=== PATIENT | male | born 1960 | race Caucasian/White ===

== ENCOUNTER 2018-02-01 13:36 | Emergency (ER) | payer OTHER ==
[~2018-02-01] VITALS: Ht 170.2 cm; Wt 113.4 kg
[2018-02-01 14:20] LABS: BASOPHILS ABSOLUTE AUTO 0.03 K/mm3 (0.00-0.23); BASOPHILS PERCENT AUTO 0 % (0-2); EOSINOPHILS ABSOLUTE AUTO 0.21 K/mm3 (0.00-0.68); EOSINOPHILS PERCENT AUTO 2 % (0-6); Hematocrit 45.8 % (37.0-53.0); Hemoglobin 15.8 g/dL (13.5-17.5); IMMATURE GRAN ABSOLUTE AUTO 0.05 K/mm3 (0.00-0.10); IMMATURE GRAN PERCENT AUTO 0 % (0-1); LYMPHOCYTES PERCENT AUTO 16 % (21-46); MONOCYTES ABSOLUTE AUTO 1.04 K/mm3 (0.16-1.47); MONOCYTES PERCENT AUTO 9 % (4-13); Mean Corpuscular HGB Conc 34.5 g/dL (31.5-36.5); Mean Corpuscular Volume 87 fL (80-100); Mean Platelet Volume 10.6 fL (9.1-12.4); NEUTROPHILS ABSOLUTE AUTO 8.89 K/mm3 (1.96-9.15); NEUTROPHILS PERCENT AUTO 73 % (41-73); Platelet Count 324 K/mm3 (150-400); RDW Coefficient Variation 13.6 % (11.7-14.2); RDW Standard Deviation 42.8 fL (35.1-46.3); Red Blood Cell Count 5.27 M/mm3 (4.30-5.90); White Blood Cell Count 12.12 K/mm3 (4.00-11.30)
[2018-02-01 14:46] LABS: Alanine Aminotransfer (ALT/SGP 36 U/L (12-78); Albumin, Blood 3.3 g/dL (3.4-5.0); Albumin/Globulin Ratio 0.8 (0.8-1.8); Alk Phos 88 U/L (50-136); Anion Gap 8 mmol/L (6-16); Aspartate Aminotrans (AST/SGOT 19 U/L (12-37); Blood Urea Nitrogen 12 mg/dL (8-24); Bun/Creatinine Ratio 14.7 (12.0-20.0); CO2, Blood 26 mmol/L (21-32); Calcium, Blood 8.8 mg/dL (8.5-10.1); Chloride, Blood 102 mmol/L (98-108); Creatinine, Blood 0.82 mg/dL (0.60-1.20); Globulin, Blood 4.4 g/dL (2.2-4.0); Glomerular Filtration Rate >60 (60-); Glucose, Blood 114 mg/dL (70-99); Sodium, Blood 136 mmol/L (136-145); Total Protein, Blood 7.7 g/dL (6.4-8.2); Troponin I <0.015 ng/mL (0.000-0.040)
[2018-02-01 15:11] LABS: Influenza A Negative (NEGATIVE); Influenza B Negative (NEGATIVE)
[2018-02-01] MEDS ORDERED: Mucinex600 MG PO (15:44)
[2018-02-01] MEDS ORDERED: Cheratussin AC118 ML PO (15:44)
[2018-02-01] MEDS ORDERED: Prednisone20 MG PO (15:44)
[2018-02-01] MEDS ORDERED: ALBU90OI INH (15:44)
== END 2018-02-01 16:21 | disposition home or self-care (01) ==
LOC: ER 13:36
PROVIDERS: Emergency Medicine; Physician Assistant
DX: J40 Bronchitis, not specified as acute or chronic (principal); Z79.899 Other long term (current) drug therapy; Z79.52 Long term (current) use of systemic steroids
CPT/HCPCS: 36415; 71046; 80053; 83880; 84484; 85025; 87804; 93005; 93010; 94640; 99284; J2930

== ENCOUNTER 2018-02-08 18:49 | Emergency (ER) | payer OTHER ==
[~2018-02-08] VITALS: Ht 170.2 cm; Wt 113.4 kg
[~2018-02-08 18:49] MED LIST: ALBU90OI INH; Cheratussin AC118 ML PO; Mucinex600 MG PO; Prednisone20 MG PO
[2018-02-08 20:59] LABS: BASOPHILS ABSOLUTE AUTO 0.04 K/mm3 (0.00-0.23); BASOPHILS PERCENT AUTO 0 % (0-2); EOSINOPHILS ABSOLUTE AUTO 0.11 K/mm3 (0.00-0.68); EOSINOPHILS PERCENT AUTO 1 % (0-6); Hematocrit 39.8 % (37.0-53.0); Hemoglobin 13.5 g/dL (13.5-17.5); IMMATURE GRAN ABSOLUTE AUTO 0.04 K/mm3 (0.00-0.10); IMMATURE GRAN PERCENT AUTO 0 % (0-1); LYMPHOCYTES ABSOLUTE AUTO 2.33 K/mm3 (0.84-5.20); LYMPHOCYTES PERCENT AUTO 25 % (21-46); MONOCYTES ABSOLUTE AUTO 0.71 K/mm3 (0.16-1.47); MONOCYTES PERCENT AUTO 8 % (4-13); Mean Corpuscular HGB 30.1 pg (26.0-34.0); Mean Corpuscular HGB Conc 33.9 g/dL (31.5-36.5); Mean Corpuscular Volume 89 fL (80-100); Mean Platelet Volume 10.5 fL (9.1-12.4); NEUTROPHILS ABSOLUTE AUTO 6.13 K/mm3 (1.96-9.15); NEUTROPHILS PERCENT AUTO 66 % (41-73); Platelet Count 260 K/mm3 (150-400); RDW Coefficient Variation 13.5 % (11.7-14.2); RDW Standard Deviation 43.7 fL (35.1-46.3); Red Blood Cell Count 4.48 M/mm3 (4.30-5.90); White Blood Cell Count 9.36 K/mm3 (4.00-11.30)
[2018-02-08 21:02] LABS: Bicarbonate Venous 25.9 mmol/L (24.0-30.0); PCO2 Venous 42.9 mmHg (38-42); PO2 Venous 190 mmHg (38-42)
[2018-02-08 21:46] LABS: U Amphetamine Screen DETECTED; U Barbituate Screen Not Detected; U Benzodiazapine Screen Not Detected; U Buprenorphine Screen Not Detected; U Cannabinoids Screen Not Detected; U Cocaine Screen Not Detected; U Methadone Screen Not Detected; U Methamphetamine Screen Not Detected; U Opiates Screen Not Detected; U Oxycodone Screen Not Detected; U Phencyclidine Screen Not Detected; U Propoxyphene Screen Not Detected
[2018-02-08] MEDS ORDERED: ALBU90OI INH (21:59)
[2018-02-08 22:04] LABS: Alanine Aminotransfer (ALT/SGP 48 U/L (12-78); Albumin, Blood 3.2 g/dL (3.4-5.0); Albumin/Globulin Ratio 0.9 (0.8-1.8); Alk Phos 75 U/L (50-136); Anion Gap 7 mmol/L (6-16); Aspartate Aminotrans (AST/SGOT 26 U/L (12-37); Bilirubin, Total 0.5 mg/dL (0.1-1.0); Blood Urea Nitrogen 24 mg/dL (8-24); Bun/Creatinine Ratio 28.8 (12.0-20.0); CO2, Blood 28 mmol/L (21-32); Calcium, Blood 8.4 mg/dL (8.5-10.1); Chloride, Blood 106 mmol/L (98-108); Creatinine, Blood 0.83 mg/dL (0.60-1.20); Globulin, Blood 3.7 g/dL (2.2-4.0); Glomerular Filtration Rate >60 (60-); Glucose, Blood 91 mg/dL (70-99); Potassium, Blood 3.5 mmol/L (3.5-5.5); Sodium, Blood 141 mmol/L (136-145); Total Protein, Blood 6.9 g/dL (6.4-8.2); Troponin I <0.015 ng/mL (0.000-0.040)
[2018-02-08 22:08] LABS: Thyroid Stimulating Hormone 0.699 uIU/mL (0.360-4.800)
== END 2018-02-08 22:13 | disposition home or self-care (01) ==
LOC: ER 18:49
PROVIDERS: Emergency Medicine
DX: J20.9 Acute bronchitis, unspecified (principal); J45.909 Unspecified asthma, uncomplicated; F43.9 Reaction to severe stress, unspecified; Z79.899 Other long term (current) drug therapy
CPT/HCPCS: 36415; 71046; 80053; 82803; 83880; 84443; 84484; 85025; 93005; 93010; 94640; 99284

== ENCOUNTER 2018-03-09 14:15 | Emergency (ER) | payer OTHER ==
[~2018-03-09] VITALS: Ht 170.2 cm; Wt 113.4 kg
[2018-03-09] MEDS ORDERED: CYCL10 PO (15:57)
[2018-03-09] MEDS ORDERED: IBUP800 PO (15:57)
== END 2018-03-09 16:20 | disposition home or self-care (01) ==
LOC: ER 14:15
DX: S20.211A Contusion of right front wall of thorax, initial encounter (principal); Z79.899 Other long term (current) drug therapy; Z79.51 Long term (current) use of inhaled steroids; W22.8XXA Striking against or struck by other objects, initial encounter; Y93.72 Activity, wrestling
CPT/HCPCS: 71101; 99283

== ENCOUNTER 2018-04-05 09:29 | Emergency (ER) | payer OTHER ==
[~2018-04-05] VITALS: Ht 170.2 cm; Wt 113.4 kg
[~2018-04-05 09:29] MED LIST changes: +CYCL10 PO; +IBUP800 PO
[2018-04-05 11:13] LABS: BASOPHILS ABSOLUTE AUTO 0.03 K/mm3 (0.00-0.23); BASOPHILS PERCENT AUTO 0 % (0-2); EOSINOPHILS ABSOLUTE AUTO 0.24 K/mm3 (0.00-0.68); EOSINOPHILS PERCENT AUTO 4 % (0-6); Hematocrit 42.3 % (37.0-53.0); Hemoglobin 14.3 g/dL (13.5-17.5); IMMATURE GRAN ABSOLUTE AUTO 0.02 K/mm3 (0.00-0.10); IMMATURE GRAN PERCENT AUTO 0 % (0-1); LYMPHOCYTES ABSOLUTE AUTO 2.02 K/mm3 (0.84-5.20); LYMPHOCYTES PERCENT AUTO 30 % (21-46); MONOCYTES ABSOLUTE AUTO 0.65 K/mm3 (0.16-1.47); MONOCYTES PERCENT AUTO 10 % (4-13); Mean Corpuscular HGB Conc 33.8 g/dL (31.5-36.5); Mean Corpuscular Volume 89 fL (80-100); Mean Platelet Volume 10.3 fL (9.1-12.4); NEUTROPHILS ABSOLUTE AUTO 3.84 K/mm3 (1.96-9.15); NEUTROPHILS PERCENT AUTO 57 % (41-73); Platelet Count 286 K/mm3 (150-400); RDW Coefficient Variation 13.3 % (11.7-14.2); RDW Standard Deviation 43.6 fL (35.1-46.3); Red Blood Cell Count 4.77 M/mm3 (4.30-5.90)
[2018-04-05 11:22] LABS: Alanine Aminotransfer (ALT/SGP 32 U/L (12-78); Albumin/Globulin Ratio 0.7 (0.8-1.8); Alk Phos 78 U/L (50-136); Anion Gap 7 mmol/L (6-16); Aspartate Aminotrans (AST/SGOT 21 U/L (12-37); Bilirubin, Total 0.6 mg/dL (0.1-1.0); Blood Urea Nitrogen 24 mg/dL (8-24); Bun/Creatinine Ratio 25.6 (12.0-20.0); CO2, Blood 30 mmol/L (21-32); Chloride, Blood 102 mmol/L (98-108); Creatinine, Blood 0.94 mg/dL (0.60-1.20); Globulin, Blood 4.3 g/dL (2.2-4.0); Glomerular Filtration Rate >60 (60-); Glucose, Blood 120 mg/dL (70-99); Potassium, Blood 4.1 mmol/L (3.5-5.5); Sodium, Blood 139 mmol/L (136-145); Total Protein, Blood 7.3 g/dL (6.4-8.2)
[2018-04-05] MEDS ORDERED: Keflex500 MG PO (11:51)
[2018-04-05] MEDS ORDERED: Bactrim Ds Tab1 EACH PO (11:51)
== END 2018-04-05 13:42 | disposition home or self-care (01) ==
LOC: ER 09:29
PROVIDERS: Physician Assistant
DX: L02.211 Cutaneous abscess of abdominal wall (principal); L03.311 Cellulitis of abdominal wall; Z79.899 Other long term (current) drug therapy; Z79.51 Long term (current) use of inhaled steroids
CPT/HCPCS: 36415; 80053; 83605; 85025; 87070; 87075; 87077; 87186; 87205; 96374; 96375; 99283; J0696; J1885; J7060

== ENCOUNTER 2020-10-06 11:21 | Emergency (ER) | payer OTHER ==
[~2020-10-06] VITALS: Ht 170.2 cm; Wt 140.6 kg
[~2020-10-06 11:21] MED LIST changes: +Bactrim Ds Tab1 EACH PO; +Keflex500 MG PO; +Viagra100 MG; +ZESTRIL40 M1 PO
== END 2020-10-06 15:08 | disposition left against medical advice (07) ==
LOC: ER 11:21
DX: Z53.21 Procedure and treatment not carried out due to patient leaving prior to being seen by health care provider (principal)
CPT/HCPCS: 71046

== ENCOUNTER 2020-12-17 07:26 | Emergency (ER) | payer OTHER ==
[~2020-12-17] VITALS: Ht 170.2 cm; Wt 141.5 kg
[2020-12-17 08:02] LABS: BASOPHILS ABSOLUTE AUTO 0.05 K/mm3 (0.00-0.23); BASOPHILS PERCENT AUTO 1 % (0-2); EOSINOPHILS ABSOLUTE AUTO 0.25 K/mm3 (0.00-0.68); EOSINOPHILS PERCENT AUTO 4 % (0-6); Hemoglobin 13.6 g/dL (13.5-17.5); IMMATURE GRAN ABSOLUTE AUTO 0.02 K/mm3 (0.00-0.10); IMMATURE GRAN PERCENT AUTO 0 % (0-1); LYMPHOCYTES ABSOLUTE AUTO 1.79 K/mm3 (0.84-5.20); LYMPHOCYTES PERCENT AUTO 26 % (21-46); MONOCYTES PERCENT AUTO 10 % (4-13); Mean Corpuscular HGB 30.5 pg (26.0-34.0); Mean Corpuscular HGB Conc 32.4 g/dL (31.5-36.5); Mean Corpuscular Volume 94 fL (80-100); Mean Platelet Volume 10.5 fL (9.1-12.4); NEUTROPHILS ABSOLUTE AUTO 4.15 K/mm3 (1.96-9.15); NEUTROPHILS PERCENT AUTO 60 % (41-73); Platelet Count 227 K/mm3 (150-400); RDW Coefficient Variation 14.6 % (11.7-14.2); RDW Standard Deviation 50.4 fL (35.1-46.3); Red Blood Cell Count 4.46 M/mm3 (4.30-5.90); White Blood Cell Count 6.96 K/mm3 (4.00-11.30)
[2020-12-17 08:34] LABS: Alanine Aminotransfer (ALT/SGP 34 U/L (12-78); Albumin, Blood 3.2 g/dL (3.4-5.0); Albumin/Globulin Ratio 0.8 (0.8-1.8); Alk Phos 78 U/L (50-136); Anion Gap 3 mmol/L (6-16); Aspartate Aminotrans (AST/SGOT 19 U/L (12-37); Bilirubin, Total 0.6 mg/dL (0.1-1.0); Blood Urea Nitrogen 16 mg/dL (8-24); Bun/Creatinine Ratio 18.3 (12.0-20.0); CO2, Blood 32 mmol/L (21-32); Calcium, Blood 9.1 mg/dL (8.5-10.1); Chloride, Blood 103 mmol/L (98-108); Creatinine, Blood 0.87 mg/dL (0.60-1.20); Globulin, Blood 4.1 g/dL (2.2-4.0); Glomerular Filtration Rate >60 (60-); Glucose, Blood 118 mg/dL (70-99); Sodium, Blood 138 mmol/L (136-145); Total Protein, Blood 7.3 g/dL (6.4-8.2)
[2020-12-17 09:54] LABS: Thyroid Stimulating Hormone 2.42 uIU/mL (0.360-4.800); Troponin I 0.031 ng/mL (0.000-0.040)
[2020-12-17] MEDS ORDERED: Cardizem CD 12120 MG PO (11:37)
[2020-12-17] MEDS ORDERED: Lasix20 MG PO (11:37)
== END 2020-12-17 12:31 | disposition home or self-care (01) ==
LOC: ER 07:26
PROVIDERS: Emergency Medicine
DX: S01.511A Laceration without foreign body of lip, initial encounter (principal); I48.91 Unspecified atrial fibrillation; I50.9 Heart failure, unspecified; Z87.891 Personal history of nicotine dependence; W06.XXXA Fall from bed, initial encounter
CPT/HCPCS: 12052; 36415; 71045; 80053; 83880; 84443; 84484; 85025; 93005; 93010; 96365-59; 96366-59; 96375-59; 96376-59; 99284-25; A9270; J1940

== ENCOUNTER 2021-02-23 18:46 | Inpatient (IN) | payer OTHER ==
[~2021-02-23] VITALS: Ht 170.2 cm; Wt 137.8 kg
[~2021-02-23 18:46] MED LIST changes: +Cardizem CD 12120 MG PO; +Lasix20 MG PO
[2021-02-23] MEDS ORDERED: TUSSIN MUC100 MG/5 M PO (19:26)
[2021-02-23] MEDS ORDERED: DILTIAZEM 24HR240 M3 PO (19:26)
[2021-02-23] MEDS ORDERED: FURO40 PO (19:26)
[2021-02-23] MEDS ORDERED: METO5 PO (19:27)
[2021-02-23] MEDS ORDERED: TOPROL XL25 MG PO (19:27)
[2021-02-23] MEDS ORDERED: XARELTO20 MG PO (19:27)
[2021-02-23] MEDS ORDERED: POTCHL20ER PO (19:27)
[2021-02-24 04:11] LABS: Anion Gap 5 mmol/L (6-16); Blood Urea Nitrogen 17 mg/dL (8-24); CO2, Blood 29 mmol/L (21-32); Calcium, Blood 8.6 mg/dL (8.5-10.1); Chloride, Blood 101 mmol/L (98-108); Glomerular Filtration Rate >60 (60-); Glucose, Blood 134 mg/dL (70-99); Potassium, Blood 3.8 mmol/L (3.5-5.5); Sodium, Blood 135 mmol/L (136-145)
--- NOTE | 2021-02-24 05:27 | NUR ---
SHIFT SUMMARY RECIEVED REPORT FROM SHUBHAM BRANDT. PATIENT TO ROOM @0200 VIA STRETCHER AND WAS A SBA TO THE BED. PATIENT BECOMES SOB WITH ACTIVITY. HAS A DRY COUGH. 02 SATS >90% ON RA. A. FIB 110s-120s WITH CARDIZEM gtt SEE EMAR. PATIENT DENIES CP/PRESSURE. SBA FOR URINAL. REPOSITIONS SELF IN BED. VSS, NO ACUTE CHANGES. CALL LIGHT IN REACH.
--- NOTE | 2021-02-24 19:08 | NUR ---
SHIFT NOTE PT HAS BEEN INDEPENDANT IN THE ROOM T/O THE SHIFT. PT HAD LARGE BM THIS AM. PT HAS BEEN ABLE TO USE BEDSIDE URINAL W/O DIFF. CARDIZEM DRIP WAS STOPPED AT 1330 TODAY, PT REMAINS IN AFIB WITH CONTROLED RATE IN 70s-100s. PT WITH SOB, STS THAT IT IS IMPROVING. PT TALKING IN FULL SENTENCES WITHOUT DIFF.
--- NOTE | 2021-02-25 04:13 | NUR ---
SHIFT SUMMARY PATIENT IS ALERT AND ORIENTED X4. HAD MOMENTS WHEN WOKEN UP WHERE HE WOULD BE CONFUSED FOR A WHILE. PATIENT IS INDEPENDENT WITH REPOSITIONING. SBA TO THE BATHROOM. 02 SATS WOULD DROP PERIODICALLY TO THE UPPER 70s-80s WHILE SLEEPING, PATIENT PLACED ON 2L VIA NC WHILE ASLEEP 02 SATS REMAINING >95%. PATIENT A.FIB 100-110s MOST THE NIGHT, RATE STARTING TO INCREASES TO 120s-130s @0430. CALL LIGHT IN REACH, BED ALARM ON.
[2021-02-25 04:28] LABS: Anion Gap 1 mmol/L (6-16); Blood Urea Nitrogen 18 mg/dL (8-24); Bun/Creatinine Ratio 19.1 (12.0-20.0); CO2, Blood 37 mmol/L (21-32); Calcium, Blood 8.8 mg/dL (8.5-10.1); Chloride, Blood 99 mmol/L (98-108); Creatinine, Blood 0.94 mg/dL (0.60-1.20); Glomerular Filtration Rate >60 (60-); Glucose, Blood 110 mg/dL (70-99); Potassium, Blood 4.1 mmol/L (3.5-5.5); Sodium, Blood 137 mmol/L (136-145)
[2021-02-25 09:37] LABS: Influenza A, PCR NEGATIVE (NEGATIVE); Influenza B, PCR NEGATIVE (NEGATIVE); Resp Syncytial Virus, PCR NEGATIVE (NEGATIVE); SARS-Cov-2 (COVID-19) PCR, MMC NEGATIVE (NEGATIVE)
--- NOTE | 2021-02-25 15:30 | NUR ---
PT PLACED ON FLUID RESTRICTIONS THIS AM, PT EDUCATED ON RESTRICTION AND CONTINUED TO KEEP A VISUAL TALLY ON WHITE BOARD IN ROOM. PT VISITOR BROUGHT PT FLUIDS AND PT DRINK THEM, EDUCATED THAT REMAINING 30cc FLUID UNTIL TOMORROW 0600 TO STAY WITHIN THE RESTRICTION. WILL CONTINUE TO MONITOR.
--- NOTE | 2021-02-25 16:52 | NUR ---
ALERT. ORIENTED. ARRIVES ABOUT 1630 FROM PCU. PER PCU TECH 115 AFIB NOT SUSTAINED. ON 2 LPM SWITCHED TO HUMIDIFIED C/O DRY NOSE W/DIFFICULTY BREATHING OUT OF ONE NARE. SCABS BLE. SCRATCHES TO LEFT FORARM DUE TO "USING SANDPAPER ON ARM". LUNGS DIM T/O. BLE EDEMA. PATIENT VERY EMOTIONAL. DISCUSSED AFIB AND MEDS. WCTM
--- NOTE | 2021-02-25 17:29 | NUR ---
TRANSFER NOTE PT ALERT, ORIENTED; CLAM AND COOPERATIVE WITH CARE. PT RESTING IN BED DURING SHIFT. APPEARS TO BE SLEEPING T/O SHIFT. UP TO BATHROOM WITH SBA. PT AND FAMILY EDUCATED ON FLUID RESTRICTIONS. PT SOB WITH EXERTION, PT 2L O2 VIA NC T/O DUE TO SLEEPING INTERMITTENTLY T/O SHIFT. SPO2 >90%. PT DENIES PAIN, CHEST PAIN, NASUEA AND DIZZINESS. ELEVATED HR NOTED, MEDICATED WITH SCHEDULED AND ONETIME DOSES. OTHER VSS. NO OTHER ACUTE CHAGNES NOTED DURING SHIFT. REPORT GIVEN TO RN ASSUMING CARE OF PT. PT TRANSFERED TO ROOM 355 AT 1637.
--- NOTE | 2021-02-26 05:34 | NUR ---
SHIFT SUMMARY PATIENT ALERT AND ORIENTED. HAD NO COMPLAINTS OF PAIN. WOULD GET SHORT OF BREATH UPON EXHERTION. SLEPT WELL OVERNIGHT. NO ACUTE ISSUES NOTED. IV PATENT AND FLUSHED. BED IN LOWEST POSITION WITH WHEELS LOCKED AND ALARM ON. CALL LIGHT WITHIN REACH. REPORT GIVEN TO ONCOMING RN.
[2021-02-26] MEDS ORDERED: TAMS.4ER PO (12:47)
--- NOTE | 2021-02-26 16:10 | NUR ---
I met with pt's mom at bedside. I was tasked to speak to pt about advanced care planning. Max was sleeping and did not stir to voice. Mom asked me not to awaken him and declined prayer/conversation about ACP. I will remain available.
--- NOTE | 2021-02-26 17:56 | NUR ---
SHIFT SUMMARY- PT IS A/O, AND COOPERATIVE. HE SLEPT FOR MOST OF THIS SHIFT. HE RECIEVED A HOME O2 EVAL AND DOES NOT NEED OXYGEN. HIS HR WENT UP INTO THE 130'S. HIS DOES OF MOTROPROLOL WAS INCREASED THIS MORNING. HIS HR HAD A FEW EPISODES OF DROPPING INTO THE 40'S WHILE HE WAS ASLEEP. HE REPORTED NOT HAVING ANY SYMPTOMS. HIS BED IS IN THE LOW POSITION AND CALL LIGHT IS WITHIN REACH.
--- NOTE | 2021-02-27 04:50 | NUR ---
SHIFT SUMMARY ASSUMED CARE OF PT AT 1900. PT IS A/OX4. HEART SOUNDS REGULAR, TELE SHOWS SINUS TACH @ 104. LUNG SOUNDS CLEAR. PT HAS NEW NEW COMPLAINTS. PT HAD A VERY HARD TIME SLEEPING AND WANTS TO GO HOME TODAY. PT IS ABLE TO WALK INDEPENDENTLY IN THE ROOM. CALL LIGHT IN REACH, BED IN LOWEST POSITION.
[2021-02-27 05:18] LABS: Anion Gap 4 mmol/L (6-16); Blood Urea Nitrogen 21 mg/dL (8-24); Bun/Creatinine Ratio 23.5 (12.0-20.0); CO2, Blood 35 mmol/L (21-32); Calcium, Blood 8.7 mg/dL (8.5-10.1); Chloride, Blood 100 mmol/L (98-108); Creatinine, Blood 0.89 mg/dL (0.60-1.20); Glomerular Filtration Rate >60 (60-); Glucose, Blood 98 mg/dL (70-99); Potassium, Blood 3.8 mmol/L (3.5-5.5); Sodium, Blood 139 mmol/L (136-145)
--- NOTE | 2021-02-27 11:33 | NUR ---
SUMMARY/DISCHARGE PT DISCHARGED TO HOME, PT VERBALIZED UNDERSTANDING OF DISCHARGE INSTRUCTIONS REGARDING MEDS AND FOLLOW UP, PT TAKEN OUT SAFELY VIA WHEELCHAIR
== END 2021-02-27 11:28 | disposition home or self-care (01) | DRG 308 ==
LOC: ER 18:46 → ERHOLD 02-24 00:16 → PCU 02-24 01:50 → MEDS 02-25 16:30 → ENPENDDIS 02-26 10:57 → MEDS 02-27 11:28
PROVIDERS: Internal Medicine; ADMIT Hospitalist
DX: I48.91 Unspecified atrial fibrillation (principal); I50.33 Acute on chronic diastolic (congestive) heart failure; N17.9 Acute kidney failure, unspecified; Z68.43 Body mass index [BMI] 50.0-59.9, adult; E66.01 Morbid (severe) obesity due to excess calories; I11.0 Hypertensive heart disease with heart failure; N40.1 Benign prostatic hyperplasia with lower urinary tract symptoms; R33.8 Other retention of urine; Z20.822 Contact with and (suspected) exposure to COVID-19; Z87.891 Personal history of nicotine dependence
CPT/HCPCS: 0241U; 36415; 71045; 80048; 93005; 93010; 94003; 96365; 96375; 96376; 99285-25; A9270; G0378; J1940

== ENCOUNTER 2022-02-19 18:08 | Inpatient (IN) | payer OTHER ==
[~2022-02-19] VITALS: Ht 170.2 cm; Wt 140.6 kg
[~2022-02-19 18:08] MED LIST changes: +DILTIAZEM 24HR240 M3 PO; +FURO40 PO; +METO5 PO; +POTCHL20ER PO; +TAMS.4ER PO; +TOPROL XL25 MG PO; +TUSSIN MUC100 MG/5 M PO; +XARELTO20 MG PO
[2022-02-19 18:35] LABS: Hematocrit 37.3 % (37.0-53.0); Hemoglobin 12.5 g/dL (13.5-17.5); Mean Corpuscular HGB 30.4 pg (26.0-34.0); Mean Corpuscular HGB Conc 33.5 g/dL (31.5-36.5); Mean Corpuscular Volume 91 fL (80-100); Mean Platelet Volume 11.1 fL (9.1-12.4); Platelet Count 189 K/mm3 (150-400); RDW Coefficient Variation 15.9 % (11.7-14.2); RDW Standard Deviation 53.4 fL (35.1-46.3); Red Blood Cell Count 4.11 M/mm3 (4.30-5.90); White Blood Cell Count 15.88 K/mm3 (4.00-11.30)
[2022-02-19] MEDS ORDERED: METFORMIN HCL500 M2 PO (18:35)
[2022-02-19] MEDS ORDERED: SPIRONOLACTONE25 MG PO (18:36)
[2022-02-19] MEDS ORDERED: TORSE20 PO (18:37)
[2022-02-19] MEDS ORDERED: Amiodarone HCl200 MG PO (18:37)
[2022-02-19 18:46] LABS: Albumin, Blood 2.2 g/dL (3.4-5.0); Albumin/Globulin Ratio 0.4 (0.8-1.8); Bilirubin, Total 0.9 mg/dL (0.1-1.0); Bun/Creatinine Ratio 10.4 (12.0-20.0); Calcium, Blood 8.1 mg/dL (8.5-10.1); Creatinine, Blood 3.86 mg/dL (0.60-1.20); Globulin, Blood 4.9 g/dL (2.2-4.0); Potassium, Blood 3.6 mmol/L (3.5-5.5); Total Protein, Blood 7.1 g/dL (6.4-8.2)
[2022-02-19 18:55] LABS: BAND PERCENT MAN 2 % (0-8); BASOPHILS PERCENT MAN 0 % (0-2); EOSINOPHILS PERCENT MAN 0 % (0-6); LYMPHOCYTES ABSOLUTE MAN 1.11 K/mm3 (0.84-5.20); LYMPHOCYTES PERCENT MAN 7 % (21-46); MONOCYTES ABSOLUTE MAN 0.47 K/mm3 (0.16-1.47); MONOCYTES PERCENT MAN 3 % (4-13); NEUTROPHILS ABSOLUTE MAN 14.29 K/mm3 (1.96-9.15); SEG NEUTROPHILS PERCENT MAN 88 % (41-73); TOTAL CELLS COUNTED 100
[2022-02-19 19:23] LABS: Influenza A, PCR NEGATIVE (NEGATIVE); Influenza B, PCR NEGATIVE (NEGATIVE); Resp Syncytial Virus, PCR NEGATIVE (NEGATIVE); SARS-Cov-2 (COVID-19) PCR, MMC NEGATIVE (NEGATIVE)
--- NOTE | 2022-02-19 23:40 | NUR ---
PATIENT TRANSFERED FROM ER TO PCU, ACCOMPANIEDBY ER NURSE. PATIENT ALERT AND ORIENTED TIMES 4. PATIENT LUNGS ASSESSED AND CLEAR BILATERALLY AND BOWEL SOUNDS PATENT. LAST BM 02/19/22 STATED BY PATIENT.PATIENT NOTED WITH ECCHYMOSIS TO LEFT BUTTOCK TOWARD LEFT GROIN MAGDALENA. PATIENT RESPONSED I DONT KNOW WHAT CAUSE THIS. BUT IT JUST START 2 DAYS AGO. BILATERAL LEGS NOTED DRY AND SCALY PULSE PRESENT. 2+ EDEMA NOTED TO BILATERAL LOWER EXTREMITIES. RIGHT HEEL NOTED WITH DRY AREA SCALY. PATIENT HAS TWO CREDIT CARD AND $20 DOLLARS IN HIS RIGHT FOOT SOCK.PATIENT ORIENTED TO CALL LIGHT AND BED CONTROL. SAFETY MAINAINED. CALL LIGHT IN PLACED.
--- NOTE | 2022-02-20 00:54 | NUR ---
CALL PLACED OUT TO DR. CHATTERJEE AT 2210 CONCERNING PATIENT TRANSFER FROM ER TO PCU AND ORDERS OF MEDICATIONS RECONCILE DONE NEED TO BE REVIEWED. STATES HE WILL LET INDERJIT SAM WHO IS COMING ON SHIFT KNOW TO REVIEW ORDERS. CONTINUE TO MONITORN PATIENT CONDITION.
[2022-02-20 04:13] LABS: BASOPHILS ABSOLUTE AUTO 0.02 K/mm3 (0.00-0.23); BASOPHILS PERCENT AUTO 0 % (0-2); EOSINOPHILS ABSOLUTE AUTO 0.14 K/mm3 (0.00-0.68); EOSINOPHILS PERCENT AUTO 1 % (0-6); Hematocrit 35.5 % (37.0-53.0); Hemoglobin 11.8 g/dL (13.5-17.5); IMMATURE GRAN ABSOLUTE AUTO 0.07 K/mm3 (0.00-0.10); IMMATURE GRAN PERCENT AUTO 1 % (0-1); LYMPHOCYTES ABSOLUTE AUTO 1.31 K/mm3 (0.84-5.20); LYMPHOCYTES PERCENT AUTO 12 % (21-46); MONOCYTES ABSOLUTE AUTO 0.76 K/mm3 (0.16-1.47); MONOCYTES PERCENT AUTO 7 % (4-13); Mean Corpuscular HGB 30.2 pg (26.0-34.0); Mean Corpuscular HGB Conc 33.2 g/dL (31.5-36.5); Mean Corpuscular Volume 91 fL (80-100); Mean Platelet Volume 11.4 fL (9.1-12.4); NEUTROPHILS ABSOLUTE AUTO 9.06 K/mm3 (1.96-9.15); NEUTROPHILS PERCENT AUTO 80 % (41-73); Platelet Count 173 K/mm3 (150-400); RDW Coefficient Variation 15.9 % (11.7-14.2); Red Blood Cell Count 3.91 M/mm3 (4.30-5.90); White Blood Cell Count 11.36 K/mm3 (4.00-11.30)
[2022-02-20 04:34] LABS: Albumin/Globulin Ratio 0.4 (0.8-1.8); Bilirubin, Total 0.4 mg/dL (0.1-1.0); Bun/Creatinine Ratio 12.8 (12.0-20.0); Calcium, Blood 7.8 mg/dL (8.5-10.1); Creatinine, Blood 3.43 mg/dL (0.60-1.20); Globulin, Blood 4.5 g/dL (2.2-4.0); Potassium, Blood 3.2 mmol/L (3.5-5.5); Total Protein, Blood 6.5 g/dL (6.4-8.2)
[2022-02-20 09:38] LABS: Percent Saturation 11.9 % (20.0-50.0)
--- NOTE | 2022-02-20 13:08 | NUR ---
Supportive visit this afternoon. Pt initially appears aprehensive upon arrival. Pt becomes more receptive as visit progresses. Pt denies pain and dyspnea at this time. Pt denies anxiety at this time. Pt does report experiencing anxiety at times. Instructed on distraction techniques and deep breathing exercises to assist with anxiety. Continued therapeutic listening as Pt reports not being but has a girlfriend of 5 years who is supportive of any needs. Continued therapeutic listening and answered questions. Ended visit to allow Pt to rest. Pt expresses appreciation and reports no other concerns at this time. Will F/U for Pt to consider completing an advanced directive. Palliative Care will remain available.
--- NOTE | 2022-02-21 01:42 | NUR ---
PATIENT REMAINS IN BED. ON ASSESSEMENT PATIENT DENIES PAIN.ASSESSEMENT PERFORMED AND NOTED WITH DICOLORATION TO LEFT HIP AND LEFT BUTTOCK. LOWER EXTRIMITES CELLULITIS NOTED. CALL LIGHT WITHIN REACH. SAFETY MAINTAINED. ONGOING MONITORING IN PLACED.
[2022-02-21 03:50] LABS: BASOPHILS ABSOLUTE AUTO 0.03 K/mm3 (0.00-0.23); BASOPHILS PERCENT AUTO 0 % (0-2); EOSINOPHILS ABSOLUTE AUTO 0.26 K/mm3 (0.00-0.68); EOSINOPHILS PERCENT AUTO 3 % (0-6); Hematocrit 37.5 % (37.0-53.0); Hemoglobin 12.8 g/dL (13.5-17.5); IMMATURE GRAN ABSOLUTE AUTO 0.07 K/mm3 (0.00-0.10); IMMATURE GRAN PERCENT AUTO 1 % (0-1); LYMPHOCYTES ABSOLUTE AUTO 1.71 K/mm3 (0.84-5.20); LYMPHOCYTES PERCENT AUTO 19 % (21-46); MONOCYTES ABSOLUTE AUTO 0.84 K/mm3 (0.16-1.47); MONOCYTES PERCENT AUTO 9 % (4-13); Mean Corpuscular HGB 30.5 pg (26.0-34.0); Mean Corpuscular HGB Conc 34.1 g/dL (31.5-36.5); Mean Corpuscular Volume 90 fL (80-100); Mean Platelet Volume 10.8 fL (9.1-12.4); NEUTROPHILS ABSOLUTE AUTO 6.09 K/mm3 (1.96-9.15); NEUTROPHILS PERCENT AUTO 68 % (41-73); Platelet Count 229 K/mm3 (150-400); RDW Coefficient Variation 15.8 % (11.7-14.2); RDW Standard Deviation 51.7 fL (35.1-46.3); Red Blood Cell Count 4.19 M/mm3 (4.30-5.90)
[2022-02-21 04:21] LABS: Bun/Creatinine Ratio 20.9 (12.0-20.0); Calcium, Blood 9.1 mg/dL (8.5-10.1); Creatinine, Blood 1.29 mg/dL (0.60-1.20)
--- NOTE | 2022-02-21 05:53 | NUR ---
INFECTION DISEASE CALLED AT 0550 CONCERNING PATIENT GI PANEL NOT BEEN SEND DOWN. SPOKE WITH MILLER. IN STRUCTED TO DICONTINUE TO ORDER DUE TO THE PATIENT HASN'T HAVE A BOWEL MOVEMENT. ALSO TO REMOVE PATIENT OUT OF INFECTION STATUS. CHARGE NURSE MADE AWARE AND ORDER DISCONTINUE.
--- NOTE | 2022-02-21 09:08 | NUR ---
UPDATE DURING CHANGE OF SHIFT REPORT, NOC NURSE REPORTED THAT "CRYSTAL METH" WAS FOUND IN PT SOCK DURING ADMISSION. DR NOTIFIED TODAY OF FINDING, TOX SCREEN ORDERED.
[2022-02-21 13:00] LABS: U Amphetamine Screen DETECTED; U Barbituate Screen Not Detected; U Benzodiazapine Screen Not Detected; U Buprenorphine Screen Not Detected; U Cannabinoids Screen Not Detected; U Cocaine Screen Not Detected; U Methadone Screen Not Detected; U Methamphetamine Screen DETECTED; U Opiates Screen Not Detected; U Oxycodone Screen Not Detected; U Phencyclidine Screen Not Detected; U Propoxyphene Screen Not Detected
--- NOTE | 2022-02-21 17:24 | NUR ---
SHIFT SUMMARY PT A/O X4 AND COOPERATIVE OF CARE. PT HAD A PERIOD OF ANXIETY TOWARDS END OF SHIFT STATING "I JUST NEED TO BE ABLE TO GET UP AND AT LEAST WALK SOME CIRCLES IN THIS ROOM." PT INSTRUCTED TO CALL WHEN WANTING TO GET UP, PT AGREED. VSS THROUGHOUT SHIFT WITH O2 SATS >92% ON 2L NC. PT SWITCHED TO CPAP WHEN SLEEPING DUE TO SATS TEMPORARILY DROPPING TO LOW 70'S, PT NOT WANTING TO ALWAYS USING CPAP WHILE SLEEPING, PT EDUCATED ON THE NEED OF THE CPAP WHILE SLEEPING. PT TITRATED TO RA, SATS STABLE. PT WAS UP IN ROOM STANDING NEXT TO BED, STABLE OF FEET, TOLERATING WELL. PT ALSO WAS SITTING UP IN CHAIR, REPORTS DISCOMFORT R/T REDNESS OF BUTTOCKS. PT USED URINAL FOR ELIMINATION. NO REPORT OF CHEST PAIN/PRESSURE THROUGHOUT SHIFT. PT REPORTED SOB WITH EXERTION AT BEGINNING OF SHIFT.
--- NOTE | 2022-02-21 22:42 | NUR ---
ASSUMED CARE OF PATIENT AT APPROIMATELY 1900 FROM RENE Polanco RN. PATIENT ALERT AND ORIENTED. ANXIOUS AT TIMES; REPORTED NEEDED TO HAVE BM SHORTLY AFTER REPORT AND RUSHED INTO BATHROOM; PATIENT REPORTED UNABLE TO WIPE SELF; STAFF ASSISTED PATIENT. PATIENT DENIES PAIN, NUMBNESS, TINGLING, DIZZINESS AND NAUSEA. PATIENT REPORTS DISCOMFORT ON BACK FROM BLISTERS AND SORES; REPORTS HE PEED ON HIMSELF AT HOME AND MAY BE WHY HE HAS BLISTERS; AND HAS HAD THESE BLISTERS BEFORE BUT UNSURE WHAT THEY WERE. PATIENT SBA DUE TO CORDS AND LINES. PATIENT PREFERS TO MOVE FROM CHAIR TO BED TO CHAIR TO BED. AFIB IN 100'S UP TO 160'S WHEN UP TO URINATE AND ANXIOUS BUT QUICKLY RECOVERS WHEN SITTING BACK DOWN; OXYGEN SATURATION ABOVE 90% ON ROOM AIR; REPORTS WILL WEAR CPAP. 2X PIV S/L.
--- NOTE | 2022-02-22 06:15 | NUR ---
PATIENT SLEPT ABOUT SEVEN HOURS. PATIENT WORE CPAP 4 HOURS; REPORTS HEADACHE FROM CPAP; OXYGEN SATURATION DROPPED INTO LOW 80'S WHEN SLEEPING WITHOUT CPAP; PATIENT REFUSED CPAP REST OF NIGHT; 2-3 LPM VIA NC AND OXYGEN SATURATION ABOVE 90%. UPDATED PHOTOS TAKEN OF BUTTOCKS AND LEFT SIDE.
[2022-02-22] MEDS ORDERED: PROBIOTIC1 EA13 PO (10:45)
[2022-02-22] MEDS ORDERED: CEPH500 PO (10:47)
[2022-02-22] MEDS ORDERED: FERSU300 PO ×2 (10:48→11:39)
[2022-02-22] MEDS ORDERED: VISBIOME 112.51 EACH PO (11:38)
[2022-02-22] MEDS ORDERED: CEPHALEXIN500 M1 PO (11:39)
--- NOTE | 2022-02-22 13:23 | NUR ---
DISCHARGE UPDATE DISCHARGE INTRUCTIONS GONE OVER WITH PT AND PT MOTHER AT 1255 . PT BELONGINGS IN BAG AND WITH PT MOTHER DURING DISCHARGE. PT LEFT UNIT AT 1315 VIA WHEELCHAIR AND ON RA. PT ABLE TO TRANSFER SELF TO AND FROM WHEELCHAIR, TOLERATED FAIR.
== END 2022-02-22 13:15 | disposition home or self-care (01) | DRG 872 ==
LOC: ER 18:08 → PCU 21:45
PROVIDERS: Emergency Medicine; Internal Medicine; ADMIT Hospitalist
DX: A41.9 Sepsis, unspecified organism (principal); N17.9 Acute kidney failure, unspecified; Z68.43 Body mass index [BMI] 50.0-59.9, adult; L03.116 Cellulitis of left lower limb; I50.32 Chronic diastolic (congestive) heart failure; I48.20 Chronic atrial fibrillation, unspecified; R65.20 Severe sepsis without septic shock; Z20.822 Contact with and (suspected) exposure to COVID-19; N40.1 Benign prostatic hyperplasia with lower urinary tract symptoms; R39.198 Other difficulties with micturition; F15.10 Other stimulant abuse, uncomplicated; E86.0 Dehydration; I11.0 Hypertensive heart disease with heart failure; T39.315A Adverse effect of propionic acid derivatives, initial encounter; R19.7 Diarrhea, unspecified; E66.01 Morbid (severe) obesity due to excess calories; D50.9 Iron deficiency anemia, unspecified; I87.2 Venous insufficiency (chronic) (peripheral); E11.9 Type 2 diabetes mellitus without complications; I95.9 Hypotension, unspecified; Z98.890 Other specified postprocedural states; Z79.01 Long term (current) use of anticoagulants; Z79.84 Long term (current) use of oral hypoglycemic drugs; Z79.899 Other long term (current) drug therapy
CPT/HCPCS: 0241U; 36415; 71045; 73700; 76770; 80048; 80053; 82728; 83540; 83550; 83605; 85025; 87040; 93005; 93010; 94660; 94762; 96374; 99285-25; A9270; J0690; J1644; J2543; J2916; J3370; J7030; J7050; J7120

== ENCOUNTER 2022-07-09 12:37 | Emergency (ER) | payer OTHER ==
[~2022-07-09] VITALS: Ht 170.2 cm; Wt 141.5 kg
[~2022-07-09 12:37] MED LIST changes: +Amiodarone HCl200 MG PO; +CEPH500 PO; +CEPHALEXIN500 M1 PO; +FERSU300 PO; +METFORMIN HCL500 M2 PO; +PROBIOTIC1 EA13 PO; +SPIRONOLACTONE25 MG PO; +TORSE20 PO; +VISBIOME 112.51 EACH PO
[2022-07-09] MEDS ORDERED: Amoxicillin500 MG PO (12:46)
== END 2022-07-09 13:00 | disposition home or self-care (01) ==
LOC: ER 12:37
DX: K04.7 Periapical abscess without sinus (principal); I11.0 Hypertensive heart disease with heart failure; I50.9 Heart failure, unspecified; I48.91 Unspecified atrial fibrillation; Z79.01 Long term (current) use of anticoagulants; Z79.899 Other long term (current) drug therapy
CPT/HCPCS: 99282

== ENCOUNTER 2023-02-11 04:00 | Inpatient (IN) | payer OTHER ==
[~2023-02-11] VITALS: Ht 170.2 cm; Wt 150.6 kg
[~2023-02-11 04:00] MED LIST changes: +Amoxicillin500 MG PO
[2023-02-11] MEDS ORDERED: XARELTO20 M1 PO (04:47)
[2023-02-11 04:57] LABS: BASOPHILS ABSOLUTE AUTO 0.05 K/mm3 (0.00-0.23); BASOPHILS PERCENT AUTO 0 % (0-2); EOSINOPHILS ABSOLUTE AUTO 0.09 K/mm3 (0.00-0.68); EOSINOPHILS PERCENT AUTO 1 % (0-6); Hematocrit 42.4 % (37.0-53.0); Hemoglobin 14.4 g/dL (13.5-17.5); IMMATURE GRAN ABSOLUTE AUTO 0.12 K/mm3 (0.00-0.10); IMMATURE GRAN PERCENT AUTO 1 % (0-1); LYMPHOCYTES PERCENT AUTO 2 % (21-46); MONOCYTES ABSOLUTE AUTO 1.01 K/mm3 (0.16-1.47); MONOCYTES PERCENT AUTO 5 % (4-13); Mean Corpuscular HGB 31.4 pg (26.0-34.0); Mean Corpuscular Volume 92 fL (80-100); Mean Platelet Volume 10.3 fL (9.1-12.4); NEUTROPHILS ABSOLUTE AUTO 17.52 K/mm3 (1.96-9.15); NEUTROPHILS PERCENT AUTO 91 % (41-73); Platelet Count 232 K/mm3 (150-400); RDW Coefficient Variation 14.2 % (11.7-14.2); Red Blood Cell Count 4.59 M/mm3 (4.30-5.90); White Blood Cell Count 19.19 K/mm3 (4.00-11.30)
[2023-02-11 05:13] LABS: Albumin, Blood 3.1 g/dL (3.4-5.0); Albumin/Globulin Ratio 0.6 (0.8-1.8); Bilirubin, Total 1.1 mg/dL (0.1-1.0); Bun/Creatinine Ratio 13.3 (12.0-20.0); Calcium, Blood 8.8 mg/dL (8.5-10.1); Creatinine, Blood 1.13 mg/dL (0.60-1.20); Globulin, Blood 4.9 g/dL (2.2-4.0)
[2023-02-11 05:33] LABS: Influenza A, PCR NEGATIVE (NEGATIVE); Influenza B, PCR NEGATIVE (NEGATIVE); Resp Syncytial Virus, PCR NEGATIVE (NEGATIVE); SARS-Cov-2 (COVID-19) PCR, MMC NEGATIVE (NEGATIVE)
[2023-02-11 05:39] LABS: Source, Urine Clean Catch
[2023-02-11 06:07] LABS: Bilirubin, Urine Neg (Neg); Blood, Urine 2+ (Neg); Glucose Qualitative, Urine Neg (Neg); Ketones, Urine Neg (Neg); Leukocyte Esterase, Urine Neg (Neg); Nitrite, Urine Neg (Neg); Protein, Urine 1+ (Neg); Specific Gravity, Urine 1.005 (1.003-1.022); Urobilinogen, Urine 2+ (Normal)
[2023-02-11 06:16] LABS: Appearance, Urine Hazy (Clear); Bacteria Rare /hpf; Color, Urine Yellow (P-Yellow); Red Blood Cells, Urine Not Seen /hpf (0-2); Squamous Epithelial Cells Few /hpf (Few); White Blood Cells, Urine 0-2 /hpf (0-5)
[2023-02-11 08:08] LABS: U Amphetamine Screen DETECTED; U Barbituate Screen Not Detected; U Benzodiazapine Screen Not Detected; U Buprenorphine Screen Not Detected; U Cannabinoids Screen Not Detected; U Cocaine Screen Not Detected; U Methadone Screen Not Detected; U Methamphetamine Screen DETECTED; U Opiates Screen Not Detected; U Oxycodone Screen Not Detected; U Phencyclidine Screen Not Detected; U Propoxyphene Screen Not Detected
[2023-02-11] MEDS ORDERED: Flomax0.4 MG PO (12:06)
[2023-02-11] MEDS ORDERED: SPIR25 PO (12:06)
[2023-02-11] MEDS ORDERED: Amiodarone HCl200 MG PO (12:07)
[2023-02-11] MEDS ORDERED: XARELTO20 MG PO (12:07)
[2023-02-11] MEDS ORDERED: METO50ER PO (12:08)
[2023-02-11] MEDS ORDERED: POTCHL20ER PO (12:08)
[2023-02-11] MEDS ORDERED: METFORMIN HCL500 M1 PO (12:10)
[2023-02-11] MEDS ORDERED: FEROSUL (12:11)
--- NOTE | 2023-02-11 18:11 | NUR ---
SHIFT SUMMARY; ASSUMED CARE AT 0700 FROM ED. A/A/OX4. INTERMITANT FEVER T/O SHIFT WITH TMAX 101.6. SPOKE WITH DR. DEMARCO EARLY IN SHIFT REGARDING HX OF METH USE AND UNKOWN SOURCE OF INFECTION. TOX SCREEN AND ECHO ORDERED. 2L O2 VIA NC, L/S COURSE AND WHEEZY. BLE EDEMA 4+. BILATERAL LOWER LEG ANTOINE STATUS WITH REDNESS FOR MID QUIJANO DOWN WITH SCALY DRY SCABS SCATTERED. NS INFUSING AT 100ML/HR, ECHO COMPLETED. TELEPHONE CALL TO DR. DEMARCO IN EVENING REGARDING HOME MED REC BEING UPDATED AND NOTING PT IS ON SPIRALACTONE AT HOME. PT ADMITS TO NOT TAKING REGULARLY. DR. DEMARCO TO REVIEW AND ORDER. FAMILY AT BEDSIDE MOST OF SHIFT. USES URINAL WITH ASSISTANCE. NEEDS ASSITANCE WITH REPOSITIONING AT TIMES. WILL CONTINUE TO MONITOR AND TREAT UNTIL CHANGE OF SHIFT.
[2023-02-12 04:22] LABS: BASOPHILS ABSOLUTE AUTO 0.06 K/mm3 (0.00-0.23); BASOPHILS PERCENT AUTO 0 % (0-2); EOSINOPHILS ABSOLUTE AUTO 0.03 K/mm3 (0.00-0.68); EOSINOPHILS PERCENT AUTO 0 % (0-6); Hematocrit 39.6 % (37.0-53.0); IMMATURE GRAN ABSOLUTE AUTO 0.25 K/mm3 (0.00-0.10); IMMATURE GRAN PERCENT AUTO 1 % (0-1); LYMPHOCYTES ABSOLUTE AUTO 1.89 K/mm3 (0.84-5.20); LYMPHOCYTES PERCENT AUTO 10 % (21-46); MONOCYTES ABSOLUTE AUTO 0.63 K/mm3 (0.16-1.47); MONOCYTES PERCENT AUTO 3 % (4-13); Mean Corpuscular HGB 31.4 pg (26.0-34.0); Mean Corpuscular HGB Conc 32.8 g/dL (31.5-36.5); Mean Corpuscular Volume 96 fL (80-100); Mean Platelet Volume 10.4 fL (9.1-12.4); NEUTROPHILS ABSOLUTE AUTO 15.71 K/mm3 (1.96-9.15); NEUTROPHILS PERCENT AUTO 85 % (41-73); Platelet Count 162 K/mm3 (150-400); RDW Standard Deviation 53.4 fL (35.1-46.3); Red Blood Cell Count 4.14 M/mm3 (4.30-5.90); White Blood Cell Count 18.57 K/mm3 (4.00-11.30)
--- NOTE | 2023-02-12 04:42 | NUR ---
SHIFT SUMMARY PATIENT IS ALERT AND ORIENTED X4. 02 SATS 95% ON 2L VIA NC, STATES SOME SOB WITH ACTIVITY. DRY COUGH. HR A.FIB 80s-110. BP STABLE. PATIENT DENIES CP/PRESSURE. BLE EDEMA AND REDNESS. CALLED RESIDENT WITH POSITIVE BLOOD CULTURES. NS REMAINS INFUSING AT 100 MLS/HR. PATIENT ABLE TO REPOSITION SELF AND SIT ON SIDE OF BED TO USE URINAL. DARK YELLOW URINE OUTPUT. CALL LIGHT IN REACH
[2023-02-12 04:47] LABS: Bun/Creatinine Ratio 16.1 (12.0-20.0); Calcium, Blood 8.3 mg/dL (8.5-10.1); Creatinine, Blood 1.12 mg/dL (0.60-1.20)
--- NOTE | 2023-02-12 14:05 | NUR ---
TRANSFER MEDICAL 326 REPORT RECIEVED FROM STEPHANIE JALLOH. PT ARRIVED VIS W/C. ALERT AND ORIENTED. SITTING ON THE SIDE OF THE BED. ORIENTED TO NEW ROOM. CALL LIGHT WITH INREACH. CONTINUE POC.
--- NOTE | 2023-02-12 14:23 | NUR ---
REPORT TO MEDICAL FLOOR SHUBHAM CEDILLO. TRANSFERRED VIA WHEEL CHAIR WITH 2L 02 VIA NC. A/A/OX4 IN NO APPARENT DISTRESS.
--- NOTE | 2023-02-12 16:57 | NUR ---
EVENING NOTE PT RESTING QUETLY. HE STOOD TO VOID AND PEED ON THE FLOOR AND HAD A STANDING BM. HE RELATED THAT HIS MOTHER CLEANS HIM UP AT HOME. HE CAN'T PUT HIS SOCKS ON OR UNDER HOANG BY HIMSELF. HE HAS BEEN REMINDED THAT HE NEEDS TO SIT AND VOID. VSS. OXYGEN 2L N/C. BLE, WHEN DEPENDENT LEGS TURN VERY DARK AND MAROON. TOES DUSKY. LUNGS COARSE T/O. STARTED ON ORAL AMIODORONE IN PCU. NO TELE ORDERED AFTER TRANSFER. CONTINUE POC.
--- NOTE | 2023-02-13 03:39 | NUR ---
SHIFT UNREMARKABLE. PT TOOK 2100 MEDICATIONS WITHOUT DIFFICULTY AND HAS SLEPT THROUGH MUCH OF REMAINDER OF SHIFT. 0200 ABX ADMINISTERED. PT CALLS APPROPRIATELY. VITALS WNL. DENIES PAIN OF EXTREMITIES. SATTING >92% ON 2 L O2 VIA NC. AOX4. CALL LIGHT LEFT WITHIN REACH.
[2023-02-13 05:34] LABS: BASOPHILS ABSOLUTE AUTO 0.04 K/mm3 (0.00-0.23); BASOPHILS PERCENT AUTO 0 % (0-2); EOSINOPHILS ABSOLUTE AUTO 0.12 K/mm3 (0.00-0.68); EOSINOPHILS PERCENT AUTO 1 % (0-6); Hematocrit 36.4 % (37.0-53.0); Hemoglobin 12.1 g/dL (13.5-17.5); IMMATURE GRAN ABSOLUTE AUTO 0.07 K/mm3 (0.00-0.10); IMMATURE GRAN PERCENT AUTO 1 % (0-1); LYMPHOCYTES ABSOLUTE AUTO 1.42 K/mm3 (0.84-5.20); LYMPHOCYTES PERCENT AUTO 11 % (21-46); MONOCYTES ABSOLUTE AUTO 1.01 K/mm3 (0.16-1.47); MONOCYTES PERCENT AUTO 8 % (4-13); Mean Corpuscular HGB 31.8 pg (26.0-34.0); Mean Corpuscular HGB Conc 33.2 g/dL (31.5-36.5); Mean Corpuscular Volume 96 fL (80-100); Mean Platelet Volume 11.1 fL (9.1-12.4); NEUTROPHILS ABSOLUTE AUTO 10.63 K/mm3 (1.96-9.15); NEUTROPHILS PERCENT AUTO 80 % (41-73); Platelet Count 175 K/mm3 (150-400); RDW Coefficient Variation 15.2 % (11.7-14.2); RDW Standard Deviation 53.7 fL (35.1-46.3); Red Blood Cell Count 3.81 M/mm3 (4.30-5.90); White Blood Cell Count 13.29 K/mm3 (4.00-11.30)
[2023-02-13 06:23] LABS: Bun/Creatinine Ratio 17.1 (12.0-20.0); Calcium, Blood 8.2 mg/dL (8.5-10.1); Creatinine, Blood 1.05 mg/dL (0.60-1.20); Potassium, Blood 3.6 mmol/L (3.5-5.5)
[2023-02-14 05:29] LABS: BASOPHILS ABSOLUTE AUTO 0.03 K/mm3 (0.00-0.23); BASOPHILS PERCENT AUTO 0 % (0-2); EOSINOPHILS ABSOLUTE AUTO 0.18 K/mm3 (0.00-0.68); EOSINOPHILS PERCENT AUTO 3 % (0-6); Hematocrit 37.9 % (37.0-53.0); Hemoglobin 12.4 g/dL (13.5-17.5); IMMATURE GRAN ABSOLUTE AUTO 0.05 K/mm3 (0.00-0.10); IMMATURE GRAN PERCENT AUTO 1 % (0-1); LYMPHOCYTES ABSOLUTE AUTO 1.21 K/mm3 (0.84-5.20); LYMPHOCYTES PERCENT AUTO 17 % (21-46); MONOCYTES PERCENT AUTO 11 % (4-13); Mean Corpuscular HGB 31.2 pg (26.0-34.0); Mean Corpuscular HGB Conc 32.7 g/dL (31.5-36.5); Mean Corpuscular Volume 95 fL (80-100); Mean Platelet Volume 10.7 fL (9.1-12.4); NEUTROPHILS ABSOLUTE AUTO 4.78 K/mm3 (1.96-9.15); NEUTROPHILS PERCENT AUTO 68 % (41-73); Platelet Count 190 K/mm3 (150-400); RDW Coefficient Variation 14.6 % (11.7-14.2); RDW Standard Deviation 51.6 fL (35.1-46.3); Red Blood Cell Count 3.98 M/mm3 (4.30-5.90); White Blood Cell Count 7.05 K/mm3 (4.00-11.30)
--- NOTE | 2023-02-14 05:47 | NUR ---
SHIFT SUMMARY PATIENT ALERT AND ORIENTED X3. HAD NO COMPLAINTS OF PAIN OR SHORTNESS OF BREATH. PATIENT CONTINUES ON 2 LITERS O2 VIA NASAL CANULA. VITAL SIGNS STABLE. NO ACUTE ISSUES NOTED OVERNIGHT. CALL LIGHT WITHIN REACH.
[2023-02-14 06:39] LABS: Bun/Creatinine Ratio 17.4 (12.0-20.0); Calcium, Blood 8.4 mg/dL (8.5-10.1); Creatinine, Blood 0.86 mg/dL (0.60-1.20); Potassium, Blood 3.7 mmol/L (3.5-5.5)
--- NOTE | 2023-02-14 18:15 | NUR ---
SHIFT SUMMARY PT A&O X 4. VSS. NO CLINICAL CHANGES TODAY. PT REMAINS ON RA AND SATS >90%. LE VENOUS DOPPLER DONE TODAY. IS PLEASANT & COOPERATIVE WITH ALL CARE. PLAN IS LIKELY HOME TOMORROW.
--- NOTE | 2023-02-15 04:00 | NUR ---
SHIFT SUMMARY 62 YR M ADMITTED ON 02/11/23 FOR CELLULITIS OF BLE. FULL CODE. NO ACUTE CHANGES THIS SHIFT. PT IS INDEPENDANT IN THE ROOM AND COOPERATIVE WITH CARE. HE STATED THAT HIS BED WAS VERY UNCOMFORTABLE AND HE ENDED UP MAKING HIMSELF COMFORTABLE BY LAYING ON THE PADDED BENCH IN HIS ROOM. HE STATED THAT HE FELT BETTER LYING THERE. OTHER THAN THE BED, HE HAD NO C/O PAIN OR DISCOMFORT. HE STATED THAT HE WOULD BE DISCHARGING TODAY BUT DOC NOTE STATES ANOTHER 1-2 DAYS ON IV ABX.
[2023-02-15 06:15] LABS: BASOPHILS ABSOLUTE AUTO 0.04 K/mm3 (0.00-0.23); BASOPHILS PERCENT AUTO 1 % (0-2); EOSINOPHILS ABSOLUTE AUTO 0.17 K/mm3 (0.00-0.68); EOSINOPHILS PERCENT AUTO 3 % (0-6); Hematocrit 38.2 % (37.0-53.0); Hemoglobin 12.5 g/dL (13.5-17.5); IMMATURE GRAN ABSOLUTE AUTO 0.06 K/mm3 (0.00-0.10); IMMATURE GRAN PERCENT AUTO 1 % (0-1); LYMPHOCYTES PERCENT AUTO 20 % (21-46); MONOCYTES ABSOLUTE AUTO 0.77 K/mm3 (0.16-1.47); MONOCYTES PERCENT AUTO 12 % (4-13); Mean Corpuscular HGB 30.8 pg (26.0-34.0); Mean Corpuscular HGB Conc 32.7 g/dL (31.5-36.5); Mean Corpuscular Volume 94 fL (80-100); Mean Platelet Volume 10.7 fL (9.1-12.4); NEUTROPHILS ABSOLUTE AUTO 4.02 K/mm3 (1.96-9.15); NEUTROPHILS PERCENT AUTO 63 % (41-73); Platelet Count 202 K/mm3 (150-400); RDW Coefficient Variation 14.4 % (11.7-14.2); RDW Standard Deviation 50.8 fL (35.1-46.3); Red Blood Cell Count 4.06 M/mm3 (4.30-5.90); White Blood Cell Count 6.36 K/mm3 (4.00-11.30)
[2023-02-15 06:48] LABS: Calcium, Blood 8.6 mg/dL (8.5-10.1); Creatinine, Blood 0.72 mg/dL (0.60-1.20); Potassium, Blood 3.8 mmol/L (3.5-5.5)
[2023-02-15] MEDS ORDERED: FURO40 PO (10:01)
[2023-02-15] MEDS ORDERED: CEPH500 PO (10:01)
[2023-02-15] MEDS ORDERED: LACT PO (10:01)
--- NOTE | 2023-02-15 12:59 | NUR ---
DISCHARGE NOTE: PT A&O x4, PLEASANT, COOPERATIVE. PT EDUCATED ON DISCHARGE MEDICATIONS, FOLLOWING UP WITH PCP, COMPLETED ALL ABX PERSCRIBED, FOLLOWING A LOW SODIAM AND DIABETIC DIET, WEIGHING SELF DAILY THE SAME WAY, TAKING PERSCRIBED DIURETCS AND SUPPLEMENTS. PT REVCEVIED KEFLEXM PO DOSE BEFORE DISCHARGE. PT IV REMOVED BY INNOVATION MANAGER W/O DIFFICULTY AND CATHETER TIP INTACTED. PT ESCORTED TO [facility] TO BE TRANSPORTED HOME BY MOTHER.
== END 2023-02-15 12:55 | disposition home or self-care (01) | DRG 871 ==
LOC: ER 04:00 → PCU 05:43 → MEDS 02-12 14:03
PROVIDERS: Student in an Organized Health Care Education/Training Program; ADMIT Internal Medicine
DX: A40.8 Other streptococcal sepsis (principal); G92.8 Other toxic encephalopathy; I48.20 Chronic atrial fibrillation, unspecified; E87.1 Hypo-osmolality and hyponatremia; J96.12 Chronic respiratory failure with hypercapnia; I50.32 Chronic diastolic (congestive) heart failure; L03.115 Cellulitis of right lower limb; Z68.43 Body mass index [BMI] 50.0-59.9, adult; E87.20 Acidosis, unspecified; F15.10 Other stimulant abuse, uncomplicated; R65.20 Severe sepsis without septic shock; G47.30 Sleep apnea, unspecified; I50.812 Chronic right heart failure; I11.0 Hypertensive heart disease with heart failure; E11.9 Type 2 diabetes mellitus without complications; E66.01 Morbid (severe) obesity due to excess calories; I87.2 Venous insufficiency (chronic) (peripheral); I27.20 Pulmonary hypertension, unspecified; Z20.822 Contact with and (suspected) exposure to COVID-19; Z79.899 Other long term (current) drug therapy; Z79.84 Long term (current) use of oral hypoglycemic drugs; Z79.01 Long term (current) use of anticoagulants; Z79.2 Long term (current) use of antibiotics; Z79.51 Long term (current) use of inhaled steroids; Z98.890 Other specified postprocedural states
CPT/HCPCS: 0241U; 36415; 71045; 80048; 80053; 81001; 82947; 83605; 85025; 87040; 87086; 87147; 93005; 93010; 93971; 94760; 94762; 96361; 96374; 96375; 99285-25; A9270; C8929; J0690; J0696; J1885; J1940; J7030; J7120; Q9957

== ENCOUNTER → 2023-06-26 | Outpatient (CLI) | payer OTHER ==
[~2023-06-26] MED LIST changes: +FEROSUL; +Flomax0.4 MG PO; +LACT PO; +METFORMIN HCL500 M1 PO; +METO50ER PO; +SPIR25 PO; +XARELTO20 M1 PO
[2023-06-26 13:14] LABS: BASOPHILS ABSOLUTE AUTO 0.04 K/mm3 (0.00-0.23); BASOPHILS PERCENT AUTO 0 % (0-2); EOSINOPHILS ABSOLUTE AUTO 0.13 K/mm3 (0.00-0.68); EOSINOPHILS PERCENT AUTO 1 % (0-6); Hematocrit 42.4 % (37.0-53.0); Hemoglobin 14.8 g/dL (13.5-17.5); IMMATURE GRAN ABSOLUTE AUTO 0.06 K/mm3 (0.00-0.10); IMMATURE GRAN PERCENT AUTO 1 % (0-1); LYMPHOCYTES ABSOLUTE AUTO 1.39 K/mm3 (0.84-5.20); LYMPHOCYTES PERCENT AUTO 14 % (21-46); MONOCYTES ABSOLUTE AUTO 1.06 K/mm3 (0.16-1.47); MONOCYTES PERCENT AUTO 11 % (4-13); Mean Corpuscular HGB 31.5 pg (26.0-34.0); Mean Corpuscular HGB Conc 34.9 g/dL (31.5-36.5); Mean Corpuscular Volume 90 fL (80-100); Mean Platelet Volume 10.7 fL (9.1-12.4); NEUTROPHILS ABSOLUTE AUTO 6.98 K/mm3 (1.96-9.15); NEUTROPHILS PERCENT AUTO 72 % (41-73); Platelet Count 230 K/mm3 (150-400); RDW Standard Deviation 49.3 fL (35.1-46.3); White Blood Cell Count 9.66 K/mm3 (4.00-11.30)
[2023-06-26 13:26] LABS: Albumin, Blood 2.7 g/dL (3.4-5.0); Albumin/Globulin Ratio 0.5 (0.8-1.8); Bilirubin, Total 1.2 mg/dL (0.1-1.0); Bun/Creatinine Ratio 14.3 (12.0-20.0); Calcium, Blood 9.3 mg/dL (8.5-10.1); Creatinine, Blood 1.26 mg/dL (0.60-1.20); Globulin, Blood 5.4 g/dL (2.2-4.0); Potassium, Blood 3.4 mmol/L (3.5-5.5); Total Protein, Blood 8.1 g/dL (6.4-8.2)
== END | disposition home or self-care (01) ==
LOC: LAB SHORT 13:10 → LAB 13:10
PROVIDERS: Chiropractor
DX: E86.0 Dehydration (principal)
CPT/HCPCS: 80053; 85025

== ENCOUNTER 2023-09-25 00:08 | Inpatient (IN) | payer OTHER ==
[2023-09-25] VITALS (31 sets, daily range): BP systolic 84–153; BP diastolic 52–82
[~2023-09-25] VITALS: Ht 162.6 cm; Wt 137.5 kg
[~2023-09-25 00:08] MED LIST changes: -SPIR25 PO; +SPIR50 PO
[2023-09-25] MEDS ORDERED: TORSE20 PO (00:18)
[2023-09-25] MEDS ORDERED: SPIR25 (00:19)
[2023-09-25 00:23] LABS: BASOPHILS ABSOLUTE AUTO 0.08 K/mm3 (0.00-0.23); BASOPHILS PERCENT AUTO 0 % (0-2); EOSINOPHILS ABSOLUTE AUTO 0.05 K/mm3 (0.00-0.68); EOSINOPHILS PERCENT AUTO 0 % (0-6); Hematocrit 40.6 % (37.0-53.0); IMMATURE GRAN ABSOLUTE AUTO 0.36 K/mm3 (0.00-0.10); IMMATURE GRAN PERCENT AUTO 1 % (0-1); LYMPHOCYTES ABSOLUTE AUTO 1.18 K/mm3 (0.84-5.20); LYMPHOCYTES PERCENT AUTO 5 % (21-46); MONOCYTES ABSOLUTE AUTO 0.83 K/mm3 (0.16-1.47); MONOCYTES PERCENT AUTO 3 % (4-13); Mean Corpuscular HGB 31.7 pg (26.0-34.0); Mean Corpuscular HGB Conc 34.5 g/dL (31.5-36.5); Mean Corpuscular Volume 92 fL (80-100); Mean Platelet Volume 10.8 fL (9.1-12.4); NEUTROPHILS ABSOLUTE AUTO 23.43 K/mm3 (1.96-9.15); NEUTROPHILS PERCENT AUTO 90 % (41-73); Platelet Count 194 K/mm3 (150-400); RDW Coefficient Variation 14.7 % (11.7-14.2); RDW Standard Deviation 50.1 fL (35.1-46.3); Red Blood Cell Count 4.41 M/mm3 (4.30-5.90); White Blood Cell Count 25.93 K/mm3 (4.00-11.30)
[2023-09-25 00:29] LABS: Bicarbonate Venous 26.3 mmol/L (24.0-30.0); PCO2 Venous 38.5 mmHg (38-42); pH Blood Venous 7.45 (7.34-7.37)
[2023-09-25 00:45] LABS: International Normalized Ratio 1.31; Prothrombin Time Results 13.5 Sec (9.7-11.5)
[2023-09-25 00:51] LABS: Albumin, Blood 2.8 g/dL (3.4-5.0); Albumin/Globulin Ratio 0.6 (0.8-1.8); Bilirubin, Total 1.4 mg/dL (0.1-1.0); Bun/Creatinine Ratio 18.4 (12.0-20.0); Calcium, Blood 8.8 mg/dL (8.5-10.1); Creatinine, Blood 1.36 mg/dL (0.60-1.20); Potassium, Blood 3.8 mmol/L (3.5-5.5); Total Protein, Blood 7.8 g/dL (6.4-8.2)
[2023-09-25 01:12] LABS: Source, Urine Clean Catch
[2023-09-25 01:17] LABS: Bilirubin, Urine Neg (Neg); Blood, Urine 3+ (Neg); Glucose Qualitative, Urine Neg (Neg); Ketones, Urine Neg (Neg); Leukocyte Esterase, Urine Neg (Neg); Nitrite, Urine Neg (Neg); Protein, Urine 2+ (Neg); Specific Gravity, Urine 1.015 (1.003-1.022); Urobilinogen, Urine NORM (Normal)
[2023-09-25 01:24] LABS: Magnesium, Blood 1.6 mg/dL (1.6-2.4); Phosphorus, Blood 1.6 mg/dL (2.5-4.9); Thyroid Stimulating Hormone 0.637 uIU/mL (0.360-4.800)
[2023-09-25 01:25] LABS: Appearance, Urine Clear (Clear); Color, Urine Yellow (P-Yellow)
[2023-09-25 01:26] LABS: Bacteria Rare /hpf; Red Blood Cells, Urine 0-2 /hpf (0-2); Squamous Epithelial Cells Rare /hpf (Few); White Blood Cells, Urine 0-2 /hpf (0-5)
[2023-09-25 01:31] LABS: U Amphetamine Screen DETECTED; U Methamphetamine Screen DETECTED
[2023-09-25 01:32] LABS: U Barbituate Screen Not Detected; U Benzodiazapine Screen Not Detected; U Buprenorphine Screen Not Detected; U Cannabinoids Screen Not Detected; U Cocaine Screen Not Detected; U Methadone Screen Not Detected; U Opiates Screen Not Detected; U Oxycodone Screen Not Detected; U Phencyclidine Screen Not Detected; U Propoxyphene Screen Not Detected
--- NOTE | 2023-09-25 05:24 | NUR ---
NOTIFIED SPECIAL PROJECTS COORDINATOR RESIDENT DR BLACKMAN THAT THE PATIENT IS CURRENTLY AFIB RVR WITH HEART RATE IN THE 130'S-140'S. DR BLACKMAN ORDERED ONE TIME 5 MG IV LOPRESSOR PUSH.
--- NOTE | 2023-09-25 07:20 | NUR ---
AM ASSESSMENT: Pt lethargic but oriented. Answers questions and follows directions but slow to respond. HR shows afib, rate 140's. LS diminished and tachypnic, biox 96% on 3L per nc. Pt denies feeling SOB. Abd distended and firm, BT positive. Pulses palp. L leg swollen and very red, warm to touch. Scabs noted. Pt states it has been this way for a while. Redness extends up leg into Abd. Pannus with redness and scabs also noted. Temp 101.7, will treat. Call light in reach. Will monitor.
--- NOTE | 2023-09-25 07:20 | NUR ---
SHIFT SUMMARY PATIENT ARRIVED TO PCU 20 VIA STRETCHER, SLIDE TRANSFER COMPLETED. HE IS ALERT AND ORIENTED X4, ALTHOUGH WAS TOO DROWSY TO PROVIDE MEANINGFUL HISTORY. EXTENSIVE REDNESS AND SWELLING NOTED TO LEFT LEG. MEDICATED WITH LOPRESSOR FOR HEART RATE, BP STABLE. ARRIVED ON 3 LITERS O2 VIA NC, SPO2 HIGH 90'S, TACHYPNIC WITH LABORED BREATHING. WILL CONTINUE TO MONITOR. CALL LIGHT WITHIN REACH.
[2023-09-25 08:31] LABS: BASOPHILS ABSOLUTE AUTO 0.07 K/mm3 (0.00-0.23); BASOPHILS PERCENT AUTO 0 % (0-2); EOSINOPHILS ABSOLUTE AUTO 0.12 K/mm3 (0.00-0.68); EOSINOPHILS PERCENT AUTO 1 % (0-6); Hematocrit 38.5 % (37.0-53.0); Hemoglobin 13.1 g/dL (13.5-17.5); IMMATURE GRAN ABSOLUTE AUTO 0.33 K/mm3 (0.00-0.10); IMMATURE GRAN PERCENT AUTO 1 % (0-1); LYMPHOCYTES ABSOLUTE AUTO 1.48 K/mm3 (0.84-5.20); LYMPHOCYTES PERCENT AUTO 6 % (21-46); MONOCYTES ABSOLUTE AUTO 0.83 K/mm3 (0.16-1.47); MONOCYTES PERCENT AUTO 4 % (4-13); Mean Corpuscular HGB 31.4 pg (26.0-34.0); Mean Corpuscular Volume 92 fL (80-100); Mean Platelet Volume 10.7 fL (9.1-12.4); NEUTROPHILS ABSOLUTE AUTO 20.19 K/mm3 (1.96-9.15); NEUTROPHILS PERCENT AUTO 88 % (41-73); Platelet Count 171 K/mm3 (150-400); RDW Coefficient Variation 14.8 % (11.7-14.2); RDW Standard Deviation 50.4 fL (35.1-46.3); Red Blood Cell Count 4.17 M/mm3 (4.30-5.90); White Blood Cell Count 23.02 K/mm3 (4.00-11.30)
[2023-09-25 08:47] LABS: Albumin, Blood 2.5 g/dL (3.4-5.0); Albumin/Globulin Ratio 0.5 (0.8-1.8); Bilirubin, Total 1.4 mg/dL (0.1-1.0); Bun/Creatinine Ratio 15.3 (12.0-20.0); Calcium, Blood 7.9 mg/dL (8.5-10.1); Creatinine, Blood 1.37 mg/dL (0.60-1.20); Globulin, Blood 4.9 g/dL (2.2-4.0); Potassium, Blood 3.7 mmol/L (3.5-5.5); Total Protein, Blood 7.4 g/dL (6.4-8.2)
[2023-09-25 09:45] LABS: Influenza A, PCR NEGATIVE (NEGATIVE); Influenza B, PCR NEGATIVE (NEGATIVE); Resp Syncytial Virus, PCR NEGATIVE (NEGATIVE); SARS-Cov-2 (COVID-19) PCR, MMC NEGATIVE (NEGATIVE)
[2023-09-25] MEDS ORDERED: TRIDERM28.4 GM TOP (14:47)
[2023-09-25] MEDS ORDERED: XARELTO20 MG PO (14:48)
[2023-09-25] MEDS ORDERED: METO100ER PO (14:51)
[2023-09-25] MEDS ORDERED: SILD50TA PO (15:05)
--- NOTE | 2023-09-25 17:49 | NUR ---
Shift Summary: Pt sleeping with bipap in place 12/09 with 2L bleed in at this time. Pt has been lethargic throughout the shift but does wake to verbal stimulus. Pt HR has remained in afib. Rate was 140-150's this am but has slowly decreased down to the low 100's. Amioderone gtt running per orders. BP has been soft throughout the shift, Physician aware. MAP has remained >65. Pt denies dizziness. Tachypnic at times and LS diminished with some occasional exp wheezing. Pt was given IS and uses it well. Biox has remained >90% on 2L per n/c while awake. With sleep pt does desat occasionally, and has gone as low as 60%. Placed on BIPAP with 2L bleed in. Settings adjusted by RT to keep biox >90%. L leg has remained very red and swollen but does not appear to have gotten worse. Will report to night RN.
[2023-09-26 00:46] VITALS: BP 110/62
[2023-09-26 03:19] VITALS: BP 97/68
--- NOTE | 2023-09-26 05:00 | NUR ---
SHIFT SUMMARY PT AXO 3-4. IN AFIB WITH AMIODARONE GTT INFUSING PER TITRATION SCHEDULE. HR 100'S. BP SOFT T/O NIGHT BUT CURRENTLY STABLE W/O ANY ADDED INTERVENTION. PT HAS EXTREME MALIK WITH DESATS TO <70% AT TIMES, HAS TOLERATED MASK WELL FOR MOST OF SHIFT BUT REQUIRES BREAKS. CELLULITIS REMAINS TO L LEG AND ABD. OUTLINED WITH SKIN MARKER. NS INFUSING @75MLS/HR/ PT STATES BEGINNING TO FEEL "MORE MENTALLY CLEAR" BUT STILL C/O SEVERE WEAKNESS. PT IS REPOSITIONING SELF WELL IN BED WITHOUT ASSISTANCE. PT HAS RESTED OFF AND ON T/O SHIFT. BED ALARM ON. CALL LIGHT WITHIN REACH.
[2023-09-26 07:33] VITALS: BP 118/76
--- NOTE | 2023-09-26 10:06 | NUR ---
AM NOTE; PT ALERT AND ORIENTED X3, SOMEWHAT CONFUSED AND FOGETFUL BUT ABLE TO ANSWER QUESTIONS APPROPRIATELY, VITALS HRR AFIB 11O'S AMIO GTT STILL INFUSING, SBP 110'S, SATS ABOVE 93% ON 2L OF O2, MILD SOB WITH EXERTION, AFEBRILE. PT WITH PAIN/DISCOMFORT WHEN TOUCHING OR MOVING LLE, LEG REMAINS RED WARM AND SWOLLEN, LEGS ELEVATED IN BED. PT ABLE TO STAND AND TRANSFER FROM BED TO CHAIR THIS AM 1PA. PT DENIES ANY CHEST/PRESSURE. TOLERATED MEALS FOR BREAKFAST, MOM CURRENTLY IN THE ROOM TO VISIT. NO OTHER ISSUES REPORTED FOR THE SHIFT PT ABLE TO MAKE NEEDS KNOWN, WILL CONTINUE TO MONITOR
[2023-09-26 11:12] VITALS: BP 128/75
[2023-09-26 15:56] VITALS: BP 92/63
--- NOTE | 2023-09-26 18:05 | NUR ---
PT SUMMARY: SEE AM NOTE; NO ACUTE CHANGE SINCE AM NOTE, PT RESTED AFTER LUNCH WITH BIPAP ON SATS KEPT ABOVE 90%, HRR AFIB RATE CONTROLLED 100'S, SBP SOFT 90-100'S MAP >70, AFEBRILE. DENIES ANY CHEST PAIN AND PRESSURE. MILD SOB WITH AMBULATION SATS ABOVE 90% ON RA. AMIO GTT INFUSION COMPLETE TO START PT ON AMIO PO TONIGHT, PT ALSO STARTED ON LASIX, NS GTT DISCONTINUED. PT HAS BEEN AMBULATING TO THE BATHROOM VIA WALKER SBA NO ISSUES, PT RECEIVED A SHOWER PER REQUEST. CONTINENT OF BOTH BOWEL AND BLADDER. TOLERATING DIET. PT CURRENTLY UP IN THE RECLINER, ABLE TO MAKE NEEDS KNOWN, CALLS APPROPRIATELY. WILL RPEORT TO ONCOMING SHIFT
[2023-09-26 20:35] VITALS: BP 136/72
--- NOTE | 2023-09-26 22:49 | NUR ---
UPDATE PT MONITOR ALARMING FOR SATS IN THE 70'S. THIS RN TO PT ROOM FOR ASSESSMENT. PT SLEEPING. PT ABSERVED HOLDING HIS BREATH WHILE SLEEPING. NC ASSESSED AND STILL IN PT NOSE. O2 INCREASED TO 5L NC, SATS RETURNED TO 90'S QUICKLY AFTER PT STOOPED HOLDING HIS BREATH.
[2023-09-27] VITALS (7 sets, daily range): BP systolic 92–111; BP diastolic 60–86
[2023-09-27 04:31] LABS: BASOPHILS ABSOLUTE AUTO 0.06 K/mm3 (0.00-0.23); BASOPHILS PERCENT AUTO 1 % (0-2); EOSINOPHILS ABSOLUTE AUTO 0.13 K/mm3 (0.00-0.68); EOSINOPHILS PERCENT AUTO 1 % (0-6); Hematocrit 37.1 % (37.0-53.0); Hemoglobin 12.3 g/dL (13.5-17.5); IMMATURE GRAN ABSOLUTE AUTO 0.06 K/mm3 (0.00-0.10); IMMATURE GRAN PERCENT AUTO 1 % (0-1); LYMPHOCYTES ABSOLUTE AUTO 1.34 K/mm3 (0.84-5.20); LYMPHOCYTES PERCENT AUTO 14 % (21-46); MONOCYTES ABSOLUTE AUTO 0.82 K/mm3 (0.16-1.47); MONOCYTES PERCENT AUTO 8 % (4-13); Mean Corpuscular HGB 30.9 pg (26.0-34.0); Mean Corpuscular HGB Conc 33.2 g/dL (31.5-36.5); Mean Corpuscular Volume 93 fL (80-100); Mean Platelet Volume 11.6 fL (9.1-12.4); NEUTROPHILS ABSOLUTE AUTO 7.35 K/mm3 (1.96-9.15); NEUTROPHILS PERCENT AUTO 75 % (41-73); Platelet Count 166 K/mm3 (150-400); RDW Coefficient Variation 14.7 % (11.7-14.2); RDW Standard Deviation 50.6 fL (35.1-46.3); Red Blood Cell Count 3.98 M/mm3 (4.30-5.90); White Blood Cell Count 9.76 K/mm3 (4.00-11.30)
--- NOTE | 2023-09-27 05:03 | NUR ---
SHIFT SUMMARY PT A/OX4 AND COOPERATIVE OF CARE. PT ABLE TO EXPRESS NEEDS AND CALLS APPROPIATELY. PT BP'S SOFT, SEE CHART. PT O2 SATS DOWN TO THE 70'S DURING ANEIC EPISODE WHILE SLEEPING, O2 INCREASED FROM 2L TO 5L. OTHER VSS THROUGHOUT SHIFT. NO REPORT OF CHEST PAIN/PRESSURE THROUGHOUT SHIFT. NO REPORT OF SOB/DYSPNEA THROUGHOUT SHISFT. PT INDEPENDENT IN BED. PT USING URINAL AT BEDSIDE, MINIMAL ASSISTANCE TO SIT UP TO EOB. PT REPORTS "MY SWELLING SEEMS TO BE DOWN."
[2023-09-27 05:36] LABS: Bun/Creatinine Ratio 20.6 (12.0-20.0); Calcium, Blood 7.9 mg/dL (8.5-10.1); Creatinine, Blood 1.07 mg/dL (0.60-1.20); Potassium, Blood 3.3 mmol/L (3.5-5.5)
--- NOTE | 2023-09-27 18:07 | NUR ---
PT SUMMARY: PT STILL REFUSES TO WEAR BIPAP MASK WHEN SLEEPING PT DESATS TO LOW 70'S RECOVERS BACK UP ONCE PT WAKES UP, ON 4L OF O2 WHEN SLEEPING. ON RA WHEN AWAKE. PT WAS GIVEN TRAMADOL ONCE THIS MORNING FOR LLE PAIN PT SLEPT AND RESTED MOST OF THE SHIFT, WAKES UP AND SITS ON THE SIDE OF THE BED FOR MEALS, USES URINAL FOR VOIDING. PT'S MOM AT THE BEDSIDE THIS MORNING ABLE TO DISCUSS PLAN WITH DR BERGERON. PT CONTINUES TO DIURESE, ON IV ABO. LLE REMAINS RED AND SWOLLEN PT STATED IT FEELS BETTER TODAY. PT DENIES ANY CHEST PAIN/PRESSURE. VITALS HAS BEEN STABLE. CALL LIGHTS WITHIN REACH. WILL REPORT TO ONCOMING SHIFT
--- NOTE | 2023-09-28 00:27 | NUR ---
UPDATE AT [facility] 1220, [employer] INFORMED THIS RN THAT PT SATS HAVE CAME DOWN TO THE 60'S. THIS RN ENTERED PT ROOM TO ASSESS. PT WAS SLEEPING IN BED WITH 2LNC APPLIED AT THE TIME. PT OBSERVED HOLDING HIS BREATH WHILE SLEEPING. O2 INCREASED TO 5L NC SATS WERE CONTINUING TO DROP AND PT WAS INTERMITENLY TALKING SMALL BREATHS. SATS DOWN TO 40'S. THIS RN ROUSED PT AND ASKED HIM TO TAKE SOME DEEP BREATHS IN THROUGH HIS NOSE AND OUT HIS MOUTH. PT EASILY AWAKENS FOR THIS. PT TOOK 2 DEEP BREATHS AND SATS QUICKLY RETURNED TO TO 90'S. PT ASKED IF HE FELT ANY LIGHTHEDEDNESS OR SOB, PT ASYMPTOMATIC.
[2023-09-28 03:55] VITALS: BP 107/74
[2023-09-28 04:51] LABS: Hematocrit 35.8 % (37.0-53.0); Hemoglobin 11.9 g/dL (13.5-17.5); Mean Corpuscular HGB 31.2 pg (26.0-34.0); Mean Corpuscular HGB Conc 33.2 g/dL (31.5-36.5); Mean Corpuscular Volume 94 fL (80-100); Mean Platelet Volume 11.1 fL (9.1-12.4); Platelet Count 165 K/mm3 (150-400); RDW Coefficient Variation 14.6 % (11.7-14.2); RDW Standard Deviation 50.5 fL (35.1-46.3); Red Blood Cell Count 3.82 M/mm3 (4.30-5.90); White Blood Cell Count 7.83 K/mm3 (4.00-11.30)
--- NOTE | 2023-09-28 05:32 | NUR ---
SHIFT SUMMARY PT A/OX4 AND COOPERATIVE OF CARE. PT ABLE TO EXPRESS NEEDS AND CALLED APPROPIATE. PT SBP'S SOFT 90-100'S. PT HAD MULTIPLE APNEIC EPISODES WHILE SLEEPING WITH SATS DROPPING TO 60-70 RANGES, O2 TITRATED TO 5L WHILE SLEEPING. OTHER VSS THROUGHOUT SHIFT. NO REPORT OF CHEST PAIN/PRESSURE. NO REPORT OF SOB/DYPNEA. PT ABLE TO SLEEP FOR MOST OF SHIFT. PT CONTINUED TO REFUSE BIPAP WHILE SLEEPING. NO ACUTE EVENTS DURING SHIFT.
[2023-09-28 07:18] VITALS: BP 128/79
[2023-09-28 15:43] VITALS: BP 111/61
[2023-09-28 16:28] VITALS: BP 124/79
--- NOTE | 2023-09-28 17:13 | NUR ---
TRANSFER NOTE: PT TRANSFERRED TO 335 REPORT GIVEN TO YAZMIN JALLOH. PT TRANSFERRED VIA WHEELCHAIR WITH ALL BELONGINGS SENT. NO ACUTE CHANGE FOR THE SHIFT, VITALS HAS BEEN STABLE PT TRANSITIONED TO MEDICAL NO TELE. PT HAS BEEN UP IN THE CHAIR OR EDGE OF THE BED FOR MEALS. PT REMAINS ON 4L OF O2 VIA NASAL CANNULA WHEN SLEEPING, RA WHEN AWAKE. PT TO DO SLEEP OXYMETRY TONIGHT PER RT. PLAN TO DC PT TOMORROW IF STABLE. NO OTHER ISSUES ENCOUNTERED, PT USES URINAL FOR VOIDING, SBA VIA WALKER FOR TRANSFER. WILL MONITOR
--- NOTE | 2023-09-28 18:30 | NUR ---
SHIFT SUMMARY PATIENT TRANSFERRED FROM PCU THIS AFTERNOON. PATIENT ALERT AND INTERACTIVE. PATIENT NOTED TO BE SOB AT REST WITH O2 AT 4L NC. PATIENT STATES THIS IS ABOUT HIS NORMAL FOR BREATHING BUT DOES NOT WEAR OXYGEN AT HOME. LOWER LEGS NOTED TO BE VERY DARK AND KATE. MARKINGS ON L LEG FOR CELLULITIS. PATIENT NOTED TO HAVE SCABBED AREAS ON EXTREMETIES. NO OPEN WEEPING WOUNDS NOTED AT THIS TIME. PATIENT TO HAVE SLEEP STUDY TONIGHT. REPORT FROM PCU STATES THAT PATIENT NOT TOLERATING CPAP BUT HAS PERIODS OF APNEA.
[2023-09-28 19:22] VITALS: BP 146/98
[2023-09-29 05:11] VITALS: BP 110/73
--- NOTE | 2023-09-29 05:33 | NUR ---
SHIFT SUMMARY NOC PT A/O X 4. PLEASANT AND COOPERATIVE WITH CARE. A/O X 4. USING BEDSIDE URINAL/BSC WITH 1PA. PT ON O2 4L/NC.PT UNDERGOING SLEEP STUDY TO DETERMINE OXYGEN NEEDS FOR DISCHARGE HOME. PT HAS SO FAR ONLY DESTATURATED ONCE BELOW 88% ON RA FOR A 30 SECONDS, THEN RECOVERED BACK TO MID 90'S. PT POSSIBLE DISCHARGE TODAY IF CELLULITIS INFECTION IMPROVED AND PT CAN BE TRANSITIONED TO PO ABX. IF PT DISCHARGES, THEY WILL BE GOING TO MOTHER'S HOUSE DUE TO PT CURRENT DOMECILE BEING FUMAGATED FOR RODENT INFESTATION. PT IS CURRENTLY RESTING WITH BED IN LOWEST POSITION, AND CALL LIGHT WITHIN REACH.
[2023-09-29 06:15] LABS: Bun/Creatinine Ratio 20.5 (12.0-20.0); Creatinine, Blood 0.88 mg/dL (0.60-1.20); Potassium, Blood 3.6 mmol/L (3.5-5.5)
[2023-09-29 07:18] VITALS: BP 109/73
--- NOTE | 2023-09-29 14:32 | NUR ---
PATIENT'S O2 SATURATION NOTED TO BE DIPPING DOWN INTO THE MID-70'S WHILE SLEEPING AND ON 2L O2 VIA NC. NOTED TO HAVE PERIODS OF APNEIC PAUSES AND SOME SNORING. PROVIDER NOTIFIED. SHE REPORTS THAT PATIENT REFUSED CPAP YESTERDAY AND HER PLAN IS STILL TO DISCHARGE TODAY WITH SUPPLEMENTAL O2. DR BERGERON IS CURRENTLY IN PATIENT'S ROOM TALKING WITH PATIENT.
[2023-09-29 15:07] VITALS: BP 132/69
[2023-09-29] MEDS ORDERED: Amiodarone HCl200 MG PO (15:28)
[2023-09-29] MEDS ORDERED: CEPHALEXIN500 M1 PO (15:30)
[2023-09-29] MEDS ORDERED: VISBIOME 112.51 EACH PO (15:33)
--- NOTE | 2023-09-29 16:40 | NUR ---
DISCHARGE A&OX4, NAPPED THROUGH MOST OF THE SHIFT. PATIENT'S MOM AT BEDSIDE T/O THE DAY. PATIENT'S O2 SATS DROPPED INTO THE 60 AND 70'S WHILE SLEEPING AND ON 2L OF O2 VIA NC. REFUSED THE USE OF A CPAP FOLLOWING SLEEP STUDY DURING LAST BUNDLE HELPER. NO ACUTE EVENTS THIS SHIFT. DISCHARGE PACKET DISCUSSED AND EDUCATION GIVEN ON HEART HEALTHY DIET, CHF, NEW MEDICATIONS, AND SLEEP APNEA. NO QUESTIONS OR CONCERNS FROM PATIENT OR HIS MOTHER. PATIENT DISCHARGED AT 1635.
== END 2023-09-29 16:38 | disposition home or self-care (01) | DRG 871 ==
LOC: ER 00:08 → PCU 03:27 → MEDS 09-28 16:36
PROVIDERS: Emergency Medicine; Internal Medicine; ADMIT Internal Medicine
DX: A41.9 Sepsis, unspecified organism (principal); J96.01 Acute respiratory failure with hypoxia; Z68.43 Body mass index [BMI] 50.0-59.9, adult; I50.32 Chronic diastolic (congestive) heart failure; I48.20 Chronic atrial fibrillation, unspecified; L03.115 Cellulitis of right lower limb; L03.116 Cellulitis of left lower limb; E87.20 Acidosis, unspecified; E87.1 Hypo-osmolality and hyponatremia; J98.11 Atelectasis; R65.20 Severe sepsis without septic shock; Z11.52 Encounter for screening for COVID-19; E66.01 Morbid (severe) obesity due to excess calories; I11.0 Hypertensive heart disease with heart failure; R79.1 Abnormal coagulation profile; F15.90 Other stimulant use, unspecified, uncomplicated; R73.9 Hyperglycemia, unspecified; G47.33 Obstructive sleep apnea (adult) (pediatric); Z91.148 Patient's other noncompliance with medication regimen for other reason; Z28.21 Immunization not carried out because of patient refusal
CPT/HCPCS: 0241U; 36415; 71045; 71260; 80048; 80053; 81001; 82803; 83605; 83735; 83880; 84100; 84443; 84484; 85025; 85027; 85379; 85610; 87040; 93005; 93010; 93970; 94660; 94760; 94762; 96365; 96365-59; 96366; 96366-59; 96367; 96367-59; 96375; 99285-25; A9270; G0378; J0282; J0692; J0696; J1940; J3370; J7030; J7050; J7060; Q9967

== ENCOUNTER 2025-07-08 07:13 | Inpatient (IN) | payer OTHER ==
[~2025-07-08] VITALS: Ht 170.2 cm; Wt 145.0 kg
[~2025-07-08 07:13] MED LIST changes: +METO100ER PO; +SILD50TA PO; +SPIR25; +TRIDERM28.4 GM TOP
[2025-07-08] MEDS ORDERED: Clindamycin 900mg in D5W 50ML 50 ML IV ONE (07:20)
[2025-07-08] MEDS ORDERED: Metoprolol Tartrate 1 MG/ML 5 ML VIAL IV PRN (07:35)
[2025-07-08 08:03] LABS: BASOPHILS ABSOLUTE AUTO 0.06 K/mm3 (0.00-0.23); BASOPHILS PERCENT AUTO 0 % (0-2); EOSINOPHILS ABSOLUTE AUTO 0.08 K/mm3 (0.00-0.68); EOSINOPHILS PERCENT AUTO 0 % (0-6); Hematocrit 41.2 % (37.0-53.0); Hemoglobin 13.9 g/dL (13.5-17.5); IMMATURE GRAN ABSOLUTE AUTO 0.15 K/mm3 (0.00-0.10); IMMATURE GRAN PERCENT AUTO 1 % (0-1); LYMPHOCYTES ABSOLUTE AUTO 0.80 K/mm3 (0.84-5.20); LYMPHOCYTES PERCENT AUTO 4 % (21-46); MONOCYTES ABSOLUTE AUTO 0.21 K/mm3 (0.16-1.47); MONOCYTES PERCENT AUTO 1 % (4-13); Mean Corpuscular HGB Conc 33.7 g/dL (31.5-36.5); Mean Corpuscular Volume 91 fL (80-100); NEUTROPHILS ABSOLUTE AUTO 19.29 K/mm3 (1.96-9.15); NEUTROPHILS PERCENT AUTO 94 % (41-73); NRBC ABSOLUTE 0.00 K/mm3 (0.00-0.02); NRBC Auto 0.0 /100 WBC (0.0-0.2); Platelet Count 219 K/mm3 (150-400); RDW Coefficient Variation 14.5 % (11.7-14.2); RDW Standard Deviation 48.9 fL (35.1-46.3)
[2025-07-08 08:23] LABS: Source, Urine Clean Catch
[2025-07-08 08:25] LABS: Alanine Aminotransfer (ALT/SGP 24.0 U/L (12-78); Albumin, Blood 2.6 g/dL (3.4-5.0); Albumin/Globulin Ratio 0.6 (0.8-1.8); Anion Gap 9.0 mmol/L (3-11); Aspartate Aminotrans (AST/SGOT 25.0 U/L (12-37); Bilirubin, Total 2.0 mg/dL (0.1-1.0); Blood Urea Nitrogen 20.0 mg/dL (8-24); CO2, Blood 28.0 mmol/L (21-32); Calcium, Blood 8.4 mg/dL (8.5-10.1); Chloride, Blood 99.0 mmol/L (98-108); Creatinine, Blood 1.26 mg/dL (0.60-1.20); Globulin, Blood 4.7 g/dL (2.2-4.0); Glucose, Blood 105.0 mg/dL (70-99); Potassium, Blood 4.0 mmol/L (3.5-5.5); Sodium, Blood 132.0 mmol/L (136-145); Total Protein, Blood 7.3 g/dL (6.4-8.2)
[2025-07-08 08:30] LABS: Color, Urine Amber (P-Yellow); Glucose Qualitative, Urine Neg (Neg); Ketones, Urine Neg (Neg); Leukocyte Esterase, Urine 1+ (Neg); Protein, Urine 2+ (Neg); Specific Gravity, Urine 1.025 (1.003-1.022); Urobilinogen, Urine 1+ (Normal)
[2025-07-08 08:37] LABS: Bilirubin, Urine 1+ (Neg)
[2025-07-08 08:39] LABS: Red Blood Cells, Urine 0-2 /hpf (0-2)
[2025-07-08] MEDS ORDERED: NS 1,000 ML IV SCH (08:40)
[2025-07-08 08:41] LABS: U Amphetamine Screen DETECTED; U Barbituate Screen Not Detected; U Benzodiazapine Screen Not Detected; U Buprenorphine Screen Not Detected; U Cannabinoids Screen Not Detected; U Cocaine Screen Not Detected; U Methadone Screen Not Detected; U Methamphetamine Screen DETECTED; U Opiates Screen Not Detected; U Oxycodone Screen Not Detected; U Phencyclidine Screen Not Detected
[2025-07-08 08:44] LABS: Influenza A, PCR NEGATIVE (NEGATIVE); Influenza B, PCR NEGATIVE (NEGATIVE); Resp Syncytial Virus, PCR NEGATIVE (NEGATIVE); SARS-Cov-2 (COVID-19) PCR, MMC NEGATIVE (NEGATIVE)
[2025-07-08] MEDS ORDERED: Polyethylene Glycol 3350 17 gm PO PRN (11:20)
[2025-07-08] MEDS ORDERED: NS 500 ML IV SCH (11:20)
[2025-07-08] MEDS ORDERED: Insulin Human Lispro 100 Units/ML 3ML Syringe SC SCH (11:30)
[2025-07-08] MEDS ORDERED: CeFAZolin Sodium 2,000 MG in NS 100 ML IV SCH (12:00)
[2025-07-08] MEDS ORDERED: TAMSULOSIN HCL0.4 M1 PO (14:14)
[2025-07-08] MEDS ORDERED: SPIRONOLACTONE50 MG PO (14:14)
[2025-07-08] MEDS ORDERED: PRED20 PO (14:15)
[2025-07-08] MEDS ORDERED: Toprol Xl200 MG PO (14:16)
[2025-07-08] MEDS ORDERED: ATOR40TA PO (14:16)
[2025-07-08] MEDS ORDERED: DILTIAZEM 24HR120 M4 PO (14:16)
[2025-07-08 14:20] VITALS: BP 127/97
--- NOTE | 2025-07-08 14:45 | NUR ---
ARRIVAL TO UNIT REPORT RECIEVED FROM ER NURSE AT 1315. PT ARRIVED TO PCU AT 1340 VIA GURNEY AND ON 2L NC. PT ABLE TO STAND AND TRANSFER TO PCU BED WITH ASSISTANCE FROM 2 STAFF MEMBERS, TOLERATED FAIR. PT HAS REDNESS OF BOTH LOWER EXTREMITIES, L>R. PT LEFT LEG WARM TO TOUCH AND TENDER TO TOUCH. PT A/OX4 AT TIME OF ARRIVAL. PT GIVEN BED BATH AT TIME OF ARRIVAL TO UNIT AND GOWN AND PAJAMA PANTS PROVIDED WITH ATTENDS. PT RESP RATE 24 AT TIME OF ARRIVAL TO UNIT. PT REPORTS SOB WITH AMBULATION TO PCU BED. WHEEZES NOTED IN BOTH LUNGS. PT WITH CARDIZEM GTT RUNNING DE ORDER. PT AFIB 90'110'S AT TIME OF ARRIVAL, NO REPORT OF CHEST PAIN/PRESSURE.
[2025-07-08 17:00] VITALS: BP 121/67
--- NOTE | 2025-07-08 17:45 | NUR ---
SHIFT SUMMARY PT A/OX4 AND COOPERATIVE OF CARE SINCE ARRIVING TO UNIT. PT ABLE TO EXPRESS NEEDS AND CALLS APPOPIATE. PT ABLE TO BE TITRATED TO RA, SATS IN THE 90'S. PT HR 80-120'S, DILT GTT RUNNING PER ORDERS, HR MOSTLY LOW 100'S. NO REPORT OF CHEST PAIN/PRESSURE. SOB REPORTED AT TIME OF ARRIVAL, NONE REPORTED AT END OF SHIFT.
[2025-07-08 20:19] VITALS: BP 118/71
[2025-07-08] MEDS ORDERED: Lactobacil 2-S.Thermo-Bifido 1 1 Cap PO SCH (21:00)
[2025-07-08] MEDS ORDERED: Docusate Sodium/Senna 1 Tab PO SCH (21:00)
[2025-07-08 23:36] VITALS: BP 114/93
[2025-07-09 03:28] LABS: pH Blood Venous 7.44 (7.34-7.37)
[2025-07-09 03:32] LABS: Hematocrit 40.2 % (37.0-53.0); Hemoglobin 13.7 g/dL (13.5-17.5); Mean Corpuscular HGB Conc 34.1 g/dL (31.5-36.5); Mean Corpuscular Volume 92 fL (80-100); NRBC ABSOLUTE 0.00 K/mm3 (0.00-0.02); NRBC Auto 0.0 /100 WBC (0.0-0.2); Platelet Count 173 K/mm3 (150-400); RDW Coefficient Variation 14.8 % (11.7-14.2); RDW Standard Deviation 49.9 fL (35.1-46.3)
[2025-07-09 03:43] VITALS: BP 131/73
[2025-07-09 04:01] LABS: Albumin, Blood 2.2 g/dL (3.4-5.0); Anion Gap 9 mmol/L (3-11); Blood Urea Nitrogen 24 mg/dL (8-24); CO2, Blood 25 mmol/L (21-32); Calcium, Blood 7.9 mg/dL (8.5-10.1); Chloride, Blood 100 mmol/L (98-108); Creatinine, Blood 0.99 mg/dL (0.60-1.20); Glucose, Blood 128 mg/dL (70-99); Magnesium, Blood 1.8 mg/dL (1.6-2.4); Phosphorus, Blood 2.5 mg/dL (2.5-4.9); Potassium, Blood 3.6 mmol/L (3.5-5.5); Sodium, Blood 130 mmol/L (136-145); Thyroid Stimulating Hormone 0.464 uIU/mL (0.360-4.800)
--- NOTE | 2025-07-09 05:03 | NUR ---
END OF SHIFT REPORT PT RECQUIRED ONE LITER NASAL CANULA OVERNIGHT WHILE SLEEPING TO MAINTAIN SATS. PT DENIES HAVING CPAP AT HOME AND ONLY HAS O2 AT HOME PRN. PT REMAINED ON DILTIAZEM DRIP AT 5 MG/HR WITH AFIB RVR WITH HEART RATE IN 90-110'S OVERNIGHT.PT DENIED ANY PAIN MEDICATION FOR RED SWOLLEN LEFT LEG. IV ABX ADMINISTERED PER MAR AND AM LABS DRAWN W INCREASED WBC TO 23.15.EDUCATION CONTINUES ON MEDICATION COMPLIANCE FOR PRODUCTION RECORDER HEALTH.
[2025-07-09 09:41] VITALS: BP 146/72
[2025-07-09 11:51] VITALS: BP 125/88
[2025-07-09] MEDS ORDERED: Vancomycin (Pharmacy Consult) IV SCH (11:55)
[2025-07-09 15:22] VITALS: BP 112/66
--- NOTE | 2025-07-09 17:35 | NUR ---
SHIFT SUMMARY PT A&Ox4, CALLS AND COMMUNCIATES NEEDS APPROPRIATELY. BP STABLE, AFIB 90-110's, DENIES CP/PRESSURE. DILT gtt INFUSING AT 5mg/hr. SpO2> 92% RA, DENIES SOB. SBA FROM BED TO CHAIR. CONTINENT OF URINE AND BOWEL. NO C/O PAIN. NO OTHER EVENTS, WILL REPORT TO ONCOMIGN RN.
[2025-07-09 20:10] VITALS: BP 133/94
[2025-07-09 23:47] VITALS: BP 139/79
[2025-07-10 03:59] VITALS: BP 108/83
--- NOTE | 2025-07-10 05:24 | NUR ---
END OF SHIFT REPORT PT VSS OVERNIGHT. PT DID REQ 1 LITER NC O2 FOR DESATTING TO 85 WHILE SLEEPING. PT HAS SNORING AND APNIC BREATHING BUT MAINTAINED SATS ON 1 LITER. IV ANTIBIOTICS ADMINISTERED PER JAN. PT REMAINS ON DILTIZEM DRIP OVERNIGHT FOR AFIB RVR WITH HEART RATE 80-110'S. ALMOST READY TO STOP DILT DRIP BUT PT HEART RATE GOES BACK TO 100'S AND NOT SUSTAINING IN 80'S. LEFT LEG STILL RED BUT COLOR TURNING MEDICAL RECORDS ASSISTANT IN COLOR AND MORE BROWNISH THAN RED. NO BM OVERNIGHT BUT PT VOIDED URINE W STAFF STANDBY ASSIST.
[2025-07-10 06:19] LABS: Hematocrit 39.1 % (37.0-53.0); Hemoglobin 13.3 g/dL (13.5-17.5); Mean Corpuscular HGB Conc 34.0 g/dL (31.5-36.5); Mean Corpuscular Volume 91 fL (80-100); NRBC ABSOLUTE 0.00 K/mm3 (0.00-0.02); NRBC Auto 0.0 /100 WBC (0.0-0.2); Platelet Count 158 K/mm3 (150-400); RDW Coefficient Variation 14.9 % (11.7-14.2); RDW Standard Deviation 49.6 fL (35.1-46.3)
[2025-07-10 06:35] LABS: Albumin, Blood 2.2 g/dL (3.4-5.0); Anion Gap 7 mmol/L (3-11); Blood Urea Nitrogen 17 mg/dL (8-24); CO2, Blood 26 mmol/L (21-32); Calcium, Blood 8.1 mg/dL (8.5-10.1); Chloride, Blood 103 mmol/L (98-108); Creatinine, Blood 0.69 mg/dL (0.60-1.20); Glucose, Blood 120 mg/dL (70-99); Magnesium, Blood 2.0 mg/dL (1.6-2.4); Phosphorus, Blood 2.2 mg/dL (2.5-4.9); Potassium, Blood 3.7 mmol/L (3.5-5.5); Sodium, Blood 132 mmol/L (136-145)
[2025-07-10 08:29] VITALS: BP 134/81
--- NOTE | 2025-07-10 09:30 | NUR ---
AM NOTE: PATIENT ALERT AND ORIENTED. DENIES PAIN. UP WITH SBA TO BATHROOM/RECLINER. LIMITED RANGE OF MOTION DUE TO OBESITY AND SWELLING TO LEFT LEG. ON 2L WHEN SLEEPING AND ROOM AIR WHILE AWAKE SATING ABOVE 95%. DENIES SOB AT REST. MODERATE DYSPNEA WITH WALKING TO BATHROOM. LUNG SOUNDS CLEAR AND DIM. DENIES COUGH. TELE SHOWING AFIB WITH HR 80-100'S. CARDIZEM GTT TURNED OFF DURING PRIOR SHIFT AT 0610. SBP 120'S. IV ABX INFUSED. EDEMA TO BLE, WORSE TO LEFT WITH REDNESS/WARMTH. DR. PANTOJA TO BEDSIDE THIS AM AND VISUALIZED LEFT LOWER EXTREMITY. SEE CHART PHOTOS WELL. BOWEL TONES PRESENT. ATTENDS IN PLACE. UP TO BATHROOM THIS AM WITH BOWEL MOVEMENT. MOTHER AT BEDSIDE AND UPDATED ON PLAN OF CARE. CALL LIGHT IN REACH. UP TO CHAIR FOR MEALS AND PATIENT TOLERATES. DENIES NEEDS.
[2025-07-10 11:38] VITALS: BP 119/74
[2025-07-10 15:38] VITALS: BP 127/85
--- NOTE | 2025-07-10 17:26 | NUR ---
SHIFT SUMMARY: NO ACUTE CHANGES. PATIENT MEDICAL WITH TELE. HR REMAINS CONTROLLED FROM 80-100'S. ON ROOM AIR WHEN AWAKE AND NEEDING 2L WHEN SLEEPING TO MAINTAIN SATURATIONS. UP TO CHAIR FOR MEALS. BOWEL MOVEMENT THIS SHIFT. LEFT LEG REMAINS SWOLLEN, RED AND WARM. VITALS SIGNS STABLE. EATING DINNER AT THIS TIME IN RECLINER AND DENIES NEEDS. CALL LIGHT IN REACH.
[2025-07-10 20:16] VITALS: BP 134/78
--- NOTE | 2025-07-10 23:39 | NUR ---
TRANSFER PT AOX4. VSS. TELE AFIB HR 80-90'S. DENIES ANY PAIN, N/V OR DYSPNEA. SBY ASSIST W/TRANSFER TO RESTROOM. LLE EDEMA +3 > THAN RLE +2. PATCHY REDNESS NOTED FROM GROIN, L UPPER THIGH TO BELOW L LOWER CALF. PT TO TRANSFER TO RM 326 FROM PCU 3. GAVE REPORT TO GINNA Epps RN.
[2025-07-11] VITALS (7 sets, daily range): BP systolic 120–152; BP diastolic 70–104
[2025-07-11] MEDS ORDERED: NS 250 ML IV PRN (01:00)
[2025-07-11 13:41] LABS: Hematocrit 40.2 % (37.0-53.0); Hemoglobin 13.3 g/dL (13.5-17.5); Mean Corpuscular HGB Conc 33.1 g/dL (31.5-36.5); Mean Corpuscular Volume 92 fL (80-100); NRBC ABSOLUTE 0.00 K/mm3 (0.00-0.02); NRBC Auto 0.0 /100 WBC (0.0-0.2); Platelet Count 179 K/mm3 (150-400); RDW Coefficient Variation 14.7 % (11.7-14.2); RDW Standard Deviation 49.7 fL (35.1-46.3)
[2025-07-11 14:27] LABS: Magnesium, Blood 2.1 mg/dL (1.6-2.4)
[2025-07-11 14:28] LABS: Albumin, Blood 2.2 g/dL (3.4-5.0); Anion Gap 6 mmol/L (3-11); Blood Urea Nitrogen 14 mg/dL (8-24); CO2, Blood 31 mmol/L (21-32); Calcium, Blood 8.4 mg/dL (8.5-10.1); Chloride, Blood 102 mmol/L (98-108); Creatinine, Blood 0.70 mg/dL (0.60-1.20); Glucose, Blood 123 mg/dL (70-99); Phosphorus, Blood 2.2 mg/dL (2.5-4.9); Potassium, Blood 3.6 mmol/L (3.5-5.5); Sodium, Blood 135 mmol/L (136-145)
--- NOTE | 2025-07-11 18:16 | NUR ---
SHIFT SUMMARY PT A&OX4, VSS, AMB IND, TOLERATING PO, VOIDING, AND DENIED PAIN. IV ABX GIVEN PER ORDER. PT STATES LLE CELLULITIS IMPROVED FROM YESTERDAY. NO OTHER ACUTE CHANGES. CALL LIGHT WITHIN REACH AND PT ABLE TO MAKE NEEDS KNOWN.
[2025-07-11] MEDS ORDERED: Miconazole Nitrate 2% 85 GM PWD TOP SCH (21:00)
[2025-07-12 03:14] VITALS: BP 151/76
--- NOTE | 2025-07-12 05:52 | NUR ---
Shift Summary Pt on telemetry. I was called by [facility] around 0500, pt had a 15 second run of RVR while he was on the toilet. Pt was asymptomatic during that run of RVR. Pt is continent although did have accident on the toilet getting urine everywhere and requested help to wipe after a BM. Pt is AOx4, 1 SBA to the BR.
[2025-07-12 06:06] LABS: Hematocrit 41.5 % (37.0-53.0); Hemoglobin 13.5 g/dL (13.5-17.5); Mean Corpuscular HGB Conc 32.5 g/dL (31.5-36.5); Mean Corpuscular Volume 91 fL (80-100); NRBC ABSOLUTE 0.00 K/mm3 (0.00-0.02); NRBC Auto 0.0 /100 WBC (0.0-0.2); Platelet Count 216 K/mm3 (150-400); RDW Coefficient Variation 14.8 % (11.7-14.2); RDW Standard Deviation 49.7 fL (35.1-46.3)
[2025-07-12 06:31] LABS: Anion Gap 8.0 mmol/L (3-11); Blood Urea Nitrogen 11.0 mg/dL (8-24); CO2, Blood 29.0 mmol/L (21-32); Calcium, Blood 8.0 mg/dL (8.5-10.1); Chloride, Blood 102.0 mmol/L (98-108); Creatinine, Blood 0.78 mg/dL (0.60-1.20); Glucose, Blood 108.0 mg/dL (70-99); Potassium, Blood 3.6 mmol/L (3.5-5.5); Sodium, Blood 135.0 mmol/L (136-145)
[2025-07-12 07:42] VITALS: BP 130/91
[2025-07-12 11:52] VITALS: BP 161/94
[2025-07-12 16:11] VITALS: BP 163/89
--- NOTE | 2025-07-12 17:44 | NUR ---
SHIFT SUMMARY NO ACUTE CHANGES THIS SHIFT. PLAN TO CONT IV ABX. CALL LIGHT WITHIN REACH AND PT ABLE TO MAKE NEEDS KNOWN.
[2025-07-12 20:21] VITALS: BP 131/94
[2025-07-12] MEDS ORDERED: Trimethoprim/Sulfamethoxazole DS Tab PO SCH (21:00)
[2025-07-13 00:10] VITALS: BP 147/108
[2025-07-13 00:16] VITALS: BP 139/104
[2025-07-13 00:30] VITALS: BP 137/94
[2025-07-13 04:06] VITALS: BP 149/67
--- NOTE | 2025-07-13 06:14 | NUR ---
Shift Summary Pt on tele running AFIB t/o the night. Tach up to 150s during exertion. No other events. He slept well t/o most of the night. 1 SBA to the BR.
[2025-07-13 08:22] VITALS: BP 125/81
[2025-07-13 12:36] VITALS: BP 138/117
[2025-07-13] MEDS ORDERED: VISBIOME 112.51 EACH PO (13:37)
[2025-07-13] MEDS ORDERED: JARDIANCE10 MG PO (13:37)
[2025-07-13] MEDS ORDERED: CEPH500 PO (13:37)
[2025-07-13] MEDS ORDERED: ACET325 PO (13:37)
[2025-07-13] MEDS ORDERED: LISI5 PO (13:38)
[2025-07-13] MEDS ORDERED: METOPROLOL SUCC25 MG PO (13:38)
[2025-07-13] MEDS ORDERED: SENN187 PO (13:39)
[2025-07-13] MEDS ORDERED: XARELTO20 MG PO (13:39)
[2025-07-13] MEDS ORDERED: MICONAZOLE NITR85 GM TOP (13:39)
[2025-07-13] MEDS ORDERED: SULFAMETHOXAZO1 EAC1 PO (13:40)
--- NOTE | 2025-07-13 16:26 | NUR ---
DISCHARGE REVIEWED WITH PT. PT VERBALIZED UNDERSTANDING MEDS AND ISNT. AIDE TO PULL IV & TELE. WHEELED PT TO DOOR AT [id number]
== END 2025-07-13 16:36 | disposition home or self-care (01) | DRG 872 ==
LOC: ER 07:13 → MEDS 11:12 → PCU 11:12 → MEDS 07-11 00:30
PROVIDERS: Emergency Medicine; Internal Medicine; ADMIT Internal Medicine
PROC: 3E03329 Introduction of Other Anti-infective into Peripheral Vein, Percutaneous Approach (ICD-10-PCS; principal; 2025-07-08)
PROC: 5A09357 Assistance with Respiratory Ventilation, Less than 24 Consecutive Hours, Continuous Positive Airway Pressure (ICD-10-PCS; 2025-07-08)
DX: A40.0 Sepsis due to streptococcus, group A (principal); L03.116 Cellulitis of left lower limb; I48.20 Chronic atrial fibrillation, unspecified; I50.42 Chronic combined systolic (congestive) and diastolic (congestive) heart failure; E87.20 Acidosis, unspecified; R65.20 Severe sepsis without septic shock; E11.9 Type 2 diabetes mellitus without complications; N40.0 Benign prostatic hyperplasia without lower urinary tract symptoms; G47.33 Obstructive sleep apnea (adult) (pediatric); F15.90 Other stimulant use, unspecified, uncomplicated; Z79.01 Long term (current) use of anticoagulants; B95.62 Methicillin resistant Staphylococcus aureus infection as the cause of diseases classified elsewhere; Z91.148 Patient's other noncompliance with medication regimen for other reason; I27.20 Pulmonary hypertension, unspecified; I11.0 Hypertensive heart disease with heart failure; Z90.89 Acquired absence of other organs; Z98.890 Other specified postprocedural states; Z79.899 Other long term (current) drug therapy
CPT/HCPCS: 36415; 71045; 80048; 80053; 80069; 81001; 82803; 82947; 83605; 83735; 83880; 84443; 84484; 85025; 85027; 87040; 87077; 87081; 87086; 87147; 87186; 87637; 93005; 93010; 94762; 96365; 96375; 99285-25; A9270; C8929; J0690; J3373; J7030; J7050; Q9957